=== PATIENT | male | born 1940 | race Caucasian/White ===

== ENCOUNTER 2020-09-20 11:58 | Inpatient (IN) ==
[2020-09-20] MEDS ORDERED: ALBUT/IPRATROP 3MG/0.5MG NEB 3 ML VIAL INH STA (12:14)
[2020-09-20] MEDS ORDERED: dexAMETHasone**PF** 10 MG/ML VIAL IV ONE (12:14)
--- NOTE | 2020-09-20 12:22 | Emergency Department Note ---
Impression & Plan Hypoxia, SOB (shortness of breath), Pneumonia, COVID-19 ED Provider Note NAME: ANTONIO CHEN AGE: 80 SEX: M : 1940 ARRIVES VIA: Ambulance INFORMANT: [Patient][ems] ED PROVIDER(S): [Duke Coffey MD] CHIEF COMPLAINT: Short of breath HISTORY OF PRESENT ILLNESS: The patient is an 80-year-old male who presents from [facility]. He was diagnosed with COVID-19 just over a week ago. He initially he had a lot of cough although the cough has gone away. He does complain of shortness of breath. He has been on oxygen since the diagnosis and today, his O2 saturation was only 80% on 4 L. He was sent for evaluation. The patient denies any fever. He has not had vomiting or diarrhea. There is no chest pain. He has normal taste and smell. He denies any baseline issues with his lungs. REVIEW OF SYSTEMS: See HPI for pertinent positives and negatives. A total of ten systems were reviewed and were otherwise negative. PMHx/PSHx: See Below SOCIAL HISTORY: See Below. PHYSICAL EXAM: GENERAL: Patient is in no acute distress. HEENT: No acute trauma, normocephalic atraumatic, mucous membranes moist, no nasal congestion, no scleral icterus. NECK: No stridor, no adenopathy, no meningismus, trachea is midline. LUNGS: Crackles with rhonchi at both bases. No wheezing. No obvious respiratory distress. An increased respiratory rate is noted. HEART: Without murmurs gallops or rubs, regular rate and rhythm. ABDOMEN: Soft, nontender, bowel sounds positive, no hernias, no peritonitis. EXTREMITIES: No cyanosis or edema, full range of motion of all the joints without pain or difficulty, no signs for acute trauma. NEUROLOGIC: Oriented x 3, no acute motor or sensory deficits, no focal weakness. SKIN: No rash, no jaundice, no diaphoresis. DIFFERENTIAL DIAGNOSIS: Reactive airway disease, pneumonia, pneumothorax, COPD, COVID-19, CHF, infection, cardiac ischemia, pulmonary embolism, bronchitis, musculoskeletal, gastrointestinal, as well as other pathologies. EMERGENCY DEPARTMENT COURSE/PROCEDURES: ECG: Indication was shortness of breath. The ECG shows a ventricular pacemaker with a rate of 73. No concerning ST elevation, no PVCs. The QTc is 528. Continuous Cardiac Monitoring: An order was placed for continuous cardiac monitoring. The monitor shows a rate of 87 with a ventricular pacemaker. Critical Care Note: I have personally spent 49 minutes of critical care time in the direct management of this patient. This includes bedside care, interpretation of diagnostic studies, and testing, discussion with consultants, patient, and family members, and other required patient management activities. This 49 minutes is in excess of all separately billable procedures. MEDICAL DECISION MAKING: There is no leukocytosis. The patient does have a mild anemia but this appears baseline looking back at previous testing. Platelet count slightly elevated. No coagulopathy. VBG does not show acidosis. The CO2 was low likely consistent with his increased respiratory rate. Renal panel testing shows a somewhat low sodium at 132. No kidney failure. Lactic acid level was elevated consistent with infection/dehydration. No concerning liver enzyme elevation. ECG showed a paced rhythm. No acute ischemic change by EKG. Cardiac enzyme testing x1 is not consistent with acute cardiac injury. Covid testing did return positive. Chest film showed some parenchymal congestion plus potential infiltrates. No pneumothorax. Chest CT shows some chronic lung disease as well as a left lung pneumonia. On exam, the patient was tachypneic. He was hypoxic without O2 supplementation. He did have crackles on lung exam consistent with pneumonia. Patient received IV Decadron because of his hypoxia and Covid diagnosis. He was given a DuoNeb. He was maintained on oxygen supplementation via oxygen mask. The patient is in need of a hospital stay. He has Covid pneumonia. He is hypoxic. He has failed outpatient treatment. Hospitalization is warranted. I spoke to the patient, I spoke with adult protective caseworker. The on-call hospitalist was consulted. Past Med/Surg History Medical History Coronary arteriosclerosis Hyperlipemia Hypertension Rheumatoid arthritis Family History Denies family history of Diabetes Hypertension Social History Smoking Status: Former smoker Tobacco Type: Cigarettes Second Hand Exposure: No; Hx Alcohol Use: No Hx Substance Use: No Preferred Language: Maltese Communication Ability: Effective Business Services Analyst Required: No Beliefs That Will Affect Care: None Current Living Situation: Prison Feels Safe at Home: Yes Assistive Devices: Denture - Upper and Walker Allergies Allergies Allergy/AdvReac Type Severity Reaction Status Date / Time No Known Allergies Allergy Unverified 09/20/20 14:47 Home Meds Home Medications Medication Instructions Recorded Confirmed albuterol sulfate 90 mcg/actuation 2 puff INHALATION Q4H PRN 09/20/20 09/20/20 aerosol inhaler ascorbic acid (vitamin C) 500 mg 500 mg PO DAILY 09/20/20 09/20/20 tablet aspirin 81 mg tablet,delayed 81 mg PO DAILY 09/20/20 09/20/20 release (Aspirin Low Dose) atorvastatin 40 mg tablet (Lipitor) 40 mg PO PM 09/20/20 09/20/20 benzonatate 200 mg capsule 200 mg PO TID 09/20/20 09/20/20 carvedilol 12.5 mg tablet (Coreg) 12.5 mg PO BID 09/20/20 09/20/20 cholecalciferol (vitamin D3) 125 125 mcg PO DAILY 09/20/20 09/20/20 mcg (5,000 unit) tablet (Vitamin D3) dexamethasone 6 mg tablet 6 mg PO DAILY 09/20/20 09/20/20 (Decadron) docusate sodium 50 mg capsule 50 mg PO QAM 09/20/20 09/20/20 ergocalciferol (vitamin D2) 1,250 1,250 mcg PO [id number] 09/20/20 09/20/20 mcg (50,000 unit) capsule (Vitamin D2) esomeprazole magnesium 20 mg 20 mg PO DAILY 09/20/20 09/20/20 capsule,delayed release sennosides 8.6 mg tablet (senna) 8.6 mg PO DAILY PRN 09/20/20 09/20/20 tofacitinib 11 mg tablet,extended 11 mg PO DAILY 09/20/20 09/20/20 release 24 hr zinc acetate 50 mg (zinc) capsule 50 mg PO BID 09/20/20 09/20/20 Results & Data (ED) Vital Signs Vital Signs - 24 hr 09/20/20 12:03 09/20/20 12:12 09/20/20 12:19 Temperature 37.1 C Temperature Source Oral Pulse Rate 72 76 Pulse Rate [Apical] Pulse Rate from SpO2 Sensor 72 Pulse Rhythm Regular Pulse Rhythm [Apical] Pulse Strength Normal Pulse Strength [Apical] Respiratory Rate 23 24 Respiratory Effort / Characteristics Blood Pressure 109/70 109/70 Blood Pressure [Left Arm] Blood Pressure Mean 83 83 Blood Pressure Mean [Left Arm] Blood Pressure Position Sitting Blood Pressure Position [Left Arm] Pulse Oximetry 90 90 90 Oxygen Delivery Method Oxymask Nasal Cannula Nasal Cannula Oxygen Flow Rate 7 7 7 Sepsis Recent Fever Within 48 Hours No Sepsis New/Unexplained Change in Mental Status No Sepsis Action Taken by Nursing No Action Required Oxygen Flow Rate - Titration 5 Pulse Oximetry Post Tiitration 91 09/20/20 12:21 09/20/20 12:22 09/20/20 12:33 Temperature Temperature Source Pulse Rate 73 Pulse Rate [Apical] 87 Pulse Rate from SpO2 Sensor Pulse Rhythm Regular Pulse Rhythm [Apical] Pulse Strength Pulse Strength [Apical] Respiratory Rate 24 24 28 H Respiratory Effort / Characteristics Spontaneous Spontaneous Blood Pressure Blood Pressure [Left Arm] Blood Pressure Mean Blood Pressure Mean [Left Arm] Blood Pressure Position Blood Pressure Position [Left Arm] Pulse Oximetry 92 91 92 Oxygen Delivery Method Oxymask Oxymask Oxymask Oxygen Flow Rate 5 5 5 Sepsis Recent Fever Within 48 Hours Sepsis New/Unexplained Change in Mental Status Sepsis Action Taken by Nursing Oxygen Flow Rate - Titration Pulse Oximetry Post Tiitration 09/20/20 12:36 09/20/20 15:05 Temperature Temperature Source Pulse Rate Pulse Rate [Apical] 67 Pulse Rate from SpO2 Sensor Pulse Rhythm Pulse Rhythm [Apical] Regular Pulse Strength Pulse Strength [Apical] Normal Respiratory Rate 21 Respiratory Effort / Characteristics Blood Pressure Blood Pressure [Left Arm] 109/70 Blood Pressure Mean Blood Pressure Mean [Left Arm] 83 Blood Pressure Position Blood Pressure Position [Left Arm] Sitting Pulse Oximetry 91 Oxygen Delivery Method Nasal Cannula Oxymask Oxygen Flow Rate 7 7 Sepsis Recent Fever Within 48 Hours Sepsis New/Unexplained Change in Mental Status Sepsis Action Taken by Nursing Oxygen Flow Rate - Titration Pulse Oximetry Post Tiitration Home Medications Current Medication List: was personally reviewed by me Laboratory Data Attestation: I reviewed the patient's lab results. Result diagrams: 09/20/20 13:12 09/20/20 13:12 Lab Results 09/20/20 09/20/20 09/20/20 Range/Units 13:12 13:12 13:12 WBC 10.16 (4.8-10.8) K/uL RBC 3.79 L (4.7-6.1) M/uL Hgb 11.3 L (14.0-18.0) g/dL Hct 33.5 L (42-52) % MCV 88.4 (80-100) fL MCH 29.8 (25-34) pg MCHC 33.7 (32-36) g/dL RDW Std Deviation 46.5 H (36.4-46.3) fL RDW Coeff of Thomas 14.5 (11.5-14.5) % Plt Count 409 H (130-400) K/uL MPV 8.4 (7.4-10.4) fL Immature Gran % (Auto) 0.9 % Neut % (Auto) 86.2 % Lymph % (Auto) 7.6 % [place] % (Auto) 5.1 % Eos % (Auto) 0.0 % Baso % (Auto) 0.2 % Neut # (Auto) 8.76 H (1.4-6.5) K/uL Lymph # (Auto) 0.77 L (1.2-3.4) K/uL [place] # (Auto) 0.52 (0.11-0.59) K/uL Eos # (Auto) 0.00 (0-0.5) K/uL Baso # (Auto) 0.02 (0-0.2) K/uL Immature Gran # (Auto) 0.09 H (0.00-0.02) K/uL Echinocytes 1+ PT 10.9 (9.0-12.0) Seconds INR 1.1 (0.9-1.1) APTT 23.4 (21.0-31.0) Seconds PTT Ratio 0.9 VBG pH (7.36-7.41) VBG pCO2 (38-50) mmHg VBG pO2 mmHg VBG HCO3 mmol/L VBG O2 Saturation % VBG Base Excess mEq/L Barometric Pressure mm/Hg Sodium 132 L (136-145) mmol/L Potassium 4.3 (3.5-5.1) mmol/L Chloride 102 (98-107) mmol/L Carbon Dioxide 22 (21-32) mmol/L Anion Gap 8.0 (3-11) BUN 28 H (7-18) mg/dl Creatinine 0.94 (0.6-1.4) mg/dl Est Cr Clr Drug Dosing 76.4 ml/min Est GFR ( Amer) 87.2 ml/min Est GFR (Non-Af Amer) 75.2 ml/min BUN/Creatinine Ratio 30.1 H (10-20) Glucose 113 H (70-99) mg/dl Lactate (0.4-2.0) mmol/L Calcium 8.4 L (8.5-10.1) mg/dl Magnesium 2.3 (1.8-2.4) mg/dl Total Bilirubin 1.2 H (0.2-1) mg/dl AST 23 (15-37) U/L ALT 17 (12-78) U/L Alkaline Phosphatase 90 (45-117) U/L Troponin I < 0.015 (0-0.045) ng/ml Total Protein 7.1 (6.4-8.2) gm/dl Albumin 2.6 L (3.4-5.0) gm/dl Globulin 4.5 H (2.5-4.0) gm/dl Albumin/Globulin Ratio 0.6 L (0.9-2) COVID-19 Eval Order SARS-CoV-2 (PCR) (Negative) 09/20/20 09/20/20 09/20/20 Range/Units 13:12 13:12 13:20 WBC (4.8-10.8) K/uL RBC (4.7-6.1) M/uL Hgb (14.0-18.0) g/dL Hct (42-52) % MCV (80-100) fL MCH (25-34) pg MCHC (32-36) g/dL RDW Std Deviation (36.4-46.3) fL RDW Coeff of Thomas (11.5-14.5) % Plt Count (130-400) K/uL MPV (7.4-10.4) fL Immature Gran % (Auto) % Neut % (Auto) % Lymph % (Auto) % [place] % (Auto) % Eos % (Auto) % Baso % (Auto) % Neut # (Auto) (1.4-6.5) K/uL Lymph # (Auto) (1.2-3.4) K/uL [place] # (Auto) (0.11-0.59) K/uL Eos # (Auto) (0-0.5) K/uL Baso # (Auto) (0-0.2) K/uL Immature Gran # (Auto) (0.00-0.02) K/uL Echinocytes PT (9.0-12.0) Seconds INR (0.9-1.1) APTT (21.0-31.0) Seconds PTT Ratio VBG pH 7.49 H (7.36-7.41) VBG pCO2 28 L (38-50) mmHg VBG pO2 38 mmHg VBG HCO3 21 mmol/L VBG O2 Saturation 72.8 % VBG Base Excess -1.5 mEq/L Barometric Pressure 732.2 mm/Hg Sodium (136-145) mmol/L Potassium (3.5-5.1) mmol/L Chloride (98-107) mmol/L Carbon Dioxide (21-32) mmol/L Anion Gap (3-11) BUN (7-18) mg/dl Creatinine (0.6-1.4) mg/dl Est Cr Clr Drug Dosing ml/min Est GFR ( Amer) ml/min Est GFR (Non-Af Amer) ml/min BUN/Creatinine Ratio (10-20) Glucose (70-99) mg/dl Lactate 2.7 H* (0.4-2.0) mmol/L Calcium (8.5-10.1) mg/dl Magnesium (1.8-2.4) mg/dl Total Bilirubin (0.2-1) mg/dl AST (15-37) U/L ALT (12-78) U/L Alkaline Phosphatase (45-117) U/L Troponin I (0-0.045) ng/ml Total Protein (6.4-8.2) gm/dl Albumin (3.4-5.0) gm/dl Globulin (2.5-4.0) gm/dl Albumin/Globulin Ratio (0.9-2) COVID-19 Eval Order Covid19 at [facility] SARS-CoV-2 (PCR) (Negative) 09/20/20 Range/Units 13:20 WBC (4.8-10.8) K/uL RBC (4.7-6.1) M/uL Hgb (14.0-18.0) g/dL Hct (42-52) % MCV (80-100) fL MCH (25-34) pg MCHC (32-36) g/dL RDW Std Deviation (36.4-46.3) fL RDW Coeff of Thomas (11.5-14.5) % Plt Count (130-400) K/uL MPV (7.4-10.4) fL Immature Gran % (Auto) % Neut % (Auto) % Lymph % (Auto) % [place] % (Auto) % Eos % (Auto) % Baso % (Auto) % Neut # (Auto) (1.4-6.5) K/uL Lymph # (Auto) (1.2-3.4) K/uL [place] # (Auto) (0.11-0.59) K/uL Eos # (Auto) (0-0.5) K/uL Baso # (Auto) (0-0.2) K/uL Immature Gran # (Auto) (0.00-0.02) K/uL Echinocytes PT (9.0-12.0) Seconds INR (0.9-1.1) APTT (21.0-31.0) Seconds PTT Ratio VBG pH (7.36-7.41) VBG pCO2 (38-50) mmHg VBG pO2 mmHg VBG HCO3 mmol/L VBG O2 Saturation % VBG Base Excess mEq/L Barometric Pressure mm/Hg Sodium (136-145) mmol/L Potassium (3.5-5.1) mmol/L Chloride (98-107) mmol/L Carbon Dioxide (21-32) mmol/L Anion Gap (3-11) BUN (7-18) mg/dl Creatinine (0.6-1.4) mg/dl Est Cr Clr Drug Dosing ml/min Est GFR ( Amer) ml/min Est GFR (Non-Af Amer) ml/min BUN/Creatinine Ratio (10-20) Glucose (70-99) mg/dl Lactate (0.4-2.0) mmol/L Calcium (8.5-10.1) mg/dl Magnesium (1.8-2.4) mg/dl Total Bilirubin (0.2-1) mg/dl AST (15-37) U/L ALT (12-78) U/L Alkaline Phosphatase (45-117) U/L Troponin I (0-0.045) ng/ml Total Protein (6.4-8.2) gm/dl Albumin (3.4-5.0) gm/dl Globulin (2.5-4.0) gm/dl Albumin/Globulin Ratio (0.9-2) COVID-19 Eval Order SARS-CoV-2 (PCR) POSITIVE A* (Negative) Administered Medications Discontinued Medications Albuterol (Albut/Ipratrop 3mg/0.5mg Neb 3 Ml Vial) 3 ml INH NOW STA Stop: 09/20/20 12:15 Last Admin: 09/20/20 12:33 Dose: 3 ml Documented by: [id number] Dexamethasone Sodium Phosphate (DexamethasonePf 10 Mg/Ml Vial) 6 mg IV NOW ONE Stop: 09/20/20 12:15 Last Admin: 09/20/20 13:33 Dose: 6 mg Documented by: [id number] Ioversol (Optiray 320 125ml) 119 ml IV ONCE ONE Stop: 09/20/20 14:51 Last Admin: 09/20/20 14:51 Dose: 119 ml Documented by: [id number] Imaging Data Radiologist's Impression: Chest X-Ray 09/20/20 12:14 XR chest 1V portable HISTORY: 80 years-old Male SOB acute shortness of breath COMPARISON: None TECHNIQUE: Portable AP view the chest FINDINGS: Cardiac silhouette is enlarged. Left subclavian pacer/AICD. Moderate diffuse reticular interstitial opacities, left greater than right. No pneumothorax, pleural effusion or lobar airspace consolidation. Degenerative changes of the shoulders and spine. IMPRESSION: Cardiomegaly with diffuse reticular interstitial opacities suggestive of fibrosis versus interstitial pneumonitis. Correlate with prior imaging. ACT 112: Negative or not required by law. The above report was generated using voice recognition software. It may contain grammatical, syntax or spelling errors. Electronically signed by: Anthony Kaufman M.D. 09/20/2020 1:01 PM Chest CTA 09/20/20 13:49 CT ANGIOGRAPHY OF THE CHEST, PULMONARY EMBOLUS PROTOCOL CLINICAL HISTORY: Shortness of breath. COMPARISON STUDY: Chest radiograph performed earlier today. TECHNIQUE: Following IV administration of 119 mL of Optiray, helical axial images of the chest were obtained utilizing the pulmonary embolus protocol. Maximal intensity projections and sagittal and coronal reformats were viewed on an independent 3D workstation. IV contrast was administered without complication. Automated exposure control was utilized for the study. A dose lowering technique was utilized adhering to the principles of ALARA. CT DOSE: 699.57 mGycm FINDINGS: No pulmonary emboli are identified. There is moderate cardiomegaly. A left subclavian biventricular pacer/AICD is in place. There is no pericardial effusion. Note is made of an old left ventricular apical infarct with thinning. There is mild dilatation of the left ventricular apex with outpouching. There is mild dilatation of the central pulmonary arteries. Moderate coronary artery calcification is present. There are several mildly enlarged mediastinal lymph nodes. Index subcarinal lymph node measures 1.9 x 1.2 cm. There is no thoracic aortic dissection. There is a small hiatal hernia. There is mild wall thickening the distal esophagus with possible minimal adjacent infiltration. No pneumothorax or pleural effusion is noted. There is emphysema. In addition, there are extensive groundglass opacities within the lungs, greater on the left. These have a "crazy paving" appearance. There is mild left lower lobe airspace opacity. There is mild bronchiectasis, greatest within the left lower lobe with suspected early honeycombing. Several suspected hepatic cysts measure up to 1.8 cm. There are probable gallstones within visualized portions of the gallbladder. There is bilateral gynecomastia. IMPRESSION: 1. No pulmonary emboli identified. 2. Extensive groundglass opacities throughout the lungs with mild bronchiectasis and suspected honeycombing, greatest within the left lower lobe. These ground glass opacities are age-indeterminate but probably chronic and could reflect fibrotic type of nonspecific interstitial pneumonia (NSIP). Left lower lobe airspace opacity could reflect a superimposed infectious process. 3. 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 4. Dilatation of the central pulmonary arteries suggestive of pulmonary arterial hypertension. 5. Small hiatal hernia. Mild wall thickening of the distal esophagus may reflect esophagitis. 6. A few mildly enlarged mediastinal lymph nodes which are nonspecific. ACT 112: Negative or not required by law. Electronically signed by: Angelo Fowler M.D. 09/20/2020 3:27 PM Discharge Plan Visit Data Chief Complaint: Shortness of Breath/Dyspnea Stated Complaint: sob, covid positive ED Provider: Duke Coffey Discharge Problem: Hypoxia, SOB (shortness of breath), Pneumonia, COVID-19 Patient Disposition: Admitted As Inpatient Condition: Serious Discharge Instructions Interventions: ED Discharge Assessment Last Done: 09/20/20 16:10
--- NOTE | 2020-09-20 13:02 | XRay Report ---
XR chest 1V portable HISTORY: 80 years-old Male SOB acute shortness of breath COMPARISON: None TECHNIQUE: Portable AP view the chest FINDINGS: Cardiac silhouette is enlarged. Left subclavian pacer/AICD. Moderate diffuse reticular interstitial o pacities, left greater than right. No pneumothorax, pleural effusion or lobar airspace consolidation. Degenerative changes of the shoulders and spine. IMPRESSION: Cardiomegaly with diffuse reticular interstitial opacities suggestive of fibrosis versus interstitial pneumonitis. Correlate with prior imaging. ACT 112: Negative or not required by law. The above report was generated using voice recognition software. It may contain grammatical, syntax o r spelling errors. Electronically signed by: Anthony Kaufman M.D. 09/20/2020 1:01 PM
[2020-09-20 13:25] LABS: Hematocrit (blood only) 33.5 % (42-52); Hemoglobin 11.3 g/dL (14.0-18.0); Mean Corpuscular Hemoglobin 29.8 pg (25-34); Mean Corpuscular Hgb Conc 33.7 g/dL (32-36); Mean Corpuscular Volume 88.4 fL (80-100); Mean Platelet Volume 8.4 fL (7.4-10.4); Platelet Count 409 K/uL (130-400); RDW Coefficient of Variation 14.5 % (11.5-14.5); RDW Standard Deviation 46.5 fL (36.4-46.3); Red Blood Count 3.79 M/uL (4.7-6.1); White Blood Count 10.16 K/uL (4.8-10.8)
[2020-09-20 13:35] LABS: INR 1.1 (0.9-1.1); Partial Thromboplastin Ratio 0.9; Partial Thromboplastin Time 23.4 Seconds (21.0-31.0); Prothrombin Time 10.9 Seconds (9.0-12.0)
[2020-09-20 13:40] LABS: Base Excess VBG -1.5 mEq/L; Oxygen Saturation VBG 72.8 %; pH VBG 7.49 (7.36-7.41)
[2020-09-20 13:46] LABS: Alanine Aminotransferase 17 U/L (12-78); Albumin Level 2.6 gm/dl (3.4-5.0); Aspartate Aminotransferase 23 U/L (15-37); BUN Creatinine Ratio 30.1 (10-20); Blood Urea Nitrogen 28 mg/dl (7-18); Calcium 8.4 mg/dl (8.5-10.1); Carbon Dioxide 22 mmol/L (21-32); Chloride 102 mmol/L (98-107); Creatinine Clr Calc Pharmacy 76.4 ml/min; Est GFR (African American) 87.2 ml/min; Est GFR (Non-African American) 75.2 ml/min; Glucose 113 mg/dl (70-99); Magnesium 2.3 mg/dl (1.8-2.4); Potassium 4.3 mmol/L (3.5-5.1); Sodium 132 mmol/L (136-145)
[2020-09-20 13:50] LABS: Albumin Globulin Ratio 0.6 (0.9-2); Alkaline Phosphatase 90 U/L (45-117); Bilirubin,Total 1.2 mg/dl (0.2-1); Globulin 4.5 gm/dl (2.5-4.0); Total Protein 7.1 gm/dl (6.4-8.2); Troponin I < 0.015 ng/ml (0-0.045)
[2020-09-20 13:57] LABS: Basophils # (auto) 0.02 K/uL (0-0.2); Basophils % (auto) 0.2 %; Echinocytes 1+; Immature Granulocytes # (auto) 0.09 K/uL (0.00-0.02); Immature Granulocytes % (auto) 0.9 %; Lymphocytes # (auto) 0.77 K/uL (1.2-3.4); Lymphocytes % (auto) 7.6 %; Monocytes # (auto) 0.52 K/uL (0.11-0.59); Monocytes % (auto) 5.1 %; Neutrophils # (auto) 8.76 K/uL (1.4-6.5); Neutrophils % (auto) 86.2 %
[2020-09-20] MEDS ORDERED: OPTIRAY 320 125ml IV ONE (14:50)
--- NOTE | 2020-09-20 15:29 | CT Scan Report ---
CT ANGIOGRAPHY OF THE CHEST, PULMONARY EMBOLUS PROTOCOL CLINICAL HISTORY: Shortness of breath. COMPARISON STUDY: Chest radiograph performed earlier today. TECHNIQUE: Following IV administration of 119 mL of Optiray, helical axial images of the chest were o btained utilizing the pulmonary embolus protocol. Maximal intensity projections and sagittal and cor onal reformats were viewed on an independent 3D workstation. IV contrast was administered without co mplication. Automated exposure control was utilized for the study. A dose lowering technique was ut ilized adhering to the principles of ALARA. CT DOSE: 699.57 mGycm FINDINGS: No pulmonary emboli are identified. There is moderate cardiomegaly. A left subclavian bive ntricular pacer/AICD is in place. There is no pericardial effusion. Note is made of an old left ventr icular apical infarct with thinning. There is mild dilatation of the left ventricular apex with outpo uching. There is mild dilatation of the central pulmonary arteries. Moderate coronary artery calcific ation is present. There are several mildly enlarged mediastinal lymph nodes. Index subcarinal lymph n ode measures 1.9 x 1.2 cm. There is no thoracic aortic dissection. There is a small hiatal hernia. Th ere is mild wall thickening the distal esophagus with possible minimal adjacent infiltration. No pneu mothorax or pleural effusion is noted. There is emphysema. In addition, there are extensive groundgla ss opacities within the lungs, greater on the left. These have a "crazy paving" appearance. There is mild left lower lobe airspace opacity. There is mild bronchiectasis, greatest within the left lower l obe with suspected early honeycombing. Several suspected hepatic cysts measure up to 1.8 cm. There ar e probable gallstones within visualized portions of the gallbladder. There is bilateral gynecomastia. IMPRESSION: 1. No pulmonary emboli identified. 2. Extensive groundglass opacities throughout the lungs with mild bronchiectasis and suspected honeyc ombing, greatest within the left lower lobe. These ground glass opacities are age-indeterminate but p robably chronic and could reflect fibrotic type of nonspecific interstitial pneumonia (NSIP). Left lo wer lobe airspace opacity could reflect a superimposed infectious process. 3. 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 4. Dilatation of the central pulmonary arteries suggestive of pulmonary arterial hypertension. 5. Small hiatal hernia. Mild wall thickening of the distal esophagus may reflect esophagitis. 6. A few mildly enlarged mediastinal lymph nodes which are nonspecific. ACT 112: Negative or not required by law. Electronically signed by: Angelo Fowler M.D. 09/20/2020 3:27 PM
--- NOTE | 2020-09-20 15:31 | History & Physical Report ---
Date of Service September 20, 2020 Assessment & Plan (1) COVID-19: Plan: First symptoms on 09/11/2020. Not vaccinated due to patient choice. Had been started on dexamethasone and O2 by [facility] prior to admission. - Continue dexamethasone 6 mg PO daily x 10 days - Supplemental O2 for O2 sat >= 90%. - Given duration of illness, no indication for remdesivir - Presently tocilizumab not indicated, though could be candidate in next 72 hours (will get CRP in AM as well to aid decision) - DuoNebs standing - Cough suppresant PRN though patient presently denying cough - Procalcitonin and MRSA swab ordered. CTA chest indicates possible LLL pneumonia, so have low threshold to treat for bacterial superinfection, though patient denying fevers, chills, cough, or shortness of breath, making it less likely. - Pulmonary consulted (2) NSIP (nonspecific interstitial pneumonia): Plan: CTA chest results indicate groundglass with bronchiectasis and honey-combing, concerning for NSIP. No indication in patient's chart, and patient without any knowledge of prior lung issues. - Pulmonary consulted (3) Hypertension: Plan: BP was 110/70 in the ED. 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 - Continue home ASA, beta-cass, and statin (5) Rheumatoid arthritis: Plan: Stigmata of RA on hand exam. Well-controlled with patient denying any joint pain presently. - Continue home tofacitinib. Patient brought 3 pills with him and reports more having been delivered to [facility] recently. (6) Hyperlipemia: Plan: - Continue statin (7) DVT prophylaxis: Plan: Lovenox 40 mg SQ daily Code: Full code -> Discussed with patient. Would like all life-saving measures needed. History of Present Illness Chief Complaint: Covid-19 pneumonia Primary Care Provider: Jericho Aguero 80yo M w/ hx of rheumatoid arthritis, HTN, HLD who presents with Covid-19 pneumonia. The patient lives at [facility]. On Saturday (09/11), he had a fever for which he was given Tylenol. He had another fever on Saturday and was tested for Covid-19 which was positive. He unfortunately did not get his Covid vaccine because he felt he "didn't need it." At [facility], apparently, he was put on O2 and was doing ok on up to 4L. He was also started on dexamethasone, though I'm not sure what day from the records. He was sent to the ER when he had an O2 sat in the 80% range while on the 4L NC at [facility]. In the ED, he required up to 10L Oxymask initially, but has been weaned to 7L Oxymask by the time of my interview. On my interview, he actually reports feeling quite well. He notes the fevers from last week, but says he has had none since. He specifically denies any shortness of breath, cough, fevers/chills, nausea, vomiting, diarrhea, or other concerns. He feels well and asks if he can be sent home. Allergies Allergy/AdvReac Type Severity Reaction Status Date / Time No Known Allergies Allergy Unverified 09/20/20 14:47 Home Medications Medication Instructions Recorded Confirmed Type albuterol sulfate 90 mcg/actuation 2 puff INHALATION Q4H PRN 09/20/20 09/20/20 History aerosol inhaler ascorbic acid (vitamin C) 500 mg 500 mg PO DAILY 09/20/20 09/20/20 History tablet aspirin 81 mg tablet,delayed 81 mg PO DAILY 09/20/20 09/20/20 History release (Aspirin Low Dose) atorvastatin 40 mg tablet (Lipitor) 40 mg PO PM 09/20/20 09/20/20 History benzonatate 200 mg capsule 200 mg PO TID 09/20/20 09/20/20 History carvedilol 12.5 mg tablet (Coreg) 12.5 mg PO BID 09/20/20 09/20/20 History cholecalciferol (vitamin D3) 125 125 mcg PO DAILY 09/20/20 09/20/20 History mcg (5,000 unit) tablet (Vitamin D3) dexamethasone 6 mg tablet 6 mg PO DAILY 09/20/20 09/20/20 History (Decadron) docusate sodium 50 mg capsule 50 mg PO QAM 09/20/20 09/20/20 History ergocalciferol (vitamin D2) 1,250 1,250 mcg PO 4XWK 09/20/20 09/20/20 History mcg (50,000 unit) capsule (Vitamin D2) esomeprazole magnesium 20 mg 20 mg PO DAILY 09/20/20 09/20/20 History capsule,delayed release sennosides 8.6 mg tablet (senna) 8.6 mg PO DAILY PRN 09/20/20 09/20/20 History tofacitinib 11 mg tablet,extended 11 mg PO DAILY 09/20/20 09/20/20 History release 24 hr zinc acetate 50 mg (zinc) capsule 50 mg PO BID 09/20/20 09/20/20 History Past Med/Surg History Medical History (Updated 09/20/20 @ 15:42 by Osvaldo Jenkins MD) Coronary arteriosclerosis Hyperlipemia Hypertension Rheumatoid arthritis Family History Denies family history of Diabetes Hypertension Social History Smoking Status: Former smoker Tobacco Type: Cigarettes Feels Safe at Home: Yes Review of Systems Review of Systems: All systems reviewed & are unremarkable except as noted in HPI & below Physical Exam Constitutional: WD/WN, vitals as above Eyes: EOM intact bilaterally; no conjunctival abnormality ENMT: external ear and nose normal, oropharynx normal Neck: trachea midline, no thyromegaly normal visual inspection Respiratory: + tachypneic; no respiratory distress and no stridor Auscultation: + rhonchi Cardiovascular: RRR, no murmur, no edema Gastrointestinal (Abdomen): Inspection/Auscultation: abdomen normal to inspection; abdomen not distended Musculoskeletal: no cyanosis or clubbing, extremities motor strength 5/5 Skin: no rashes, warm and dry Neurologic: moves all extremities and awake Psychiatric: Orientation: alert, oriented to person and cooperative Results & Data Results & Data ([facility]) Vital Signs (Past 12 Hours) Vital Signs Temp Pulse Pulse Resp BP BP Pulse Ox 09/20/20 15:05 67 21 109/70 91 09/20/20 12:33 87 28 H 92 09/20/20 12:22 24 91 09/20/20 12:21 73 24 92 09/20/20 12:19 90 09/20/20 12:12 37.1 C 76 24 109/70 90 09/20/20 12:03 72 23 109/70 90 PG Care Time/CCT Total # of Minutes Spent Total Time Spent with Patient: Total time spent is greater than 50% in coordination of care (as documented) at patient's floor/unit and/or counseling patient: Coding Level of Care Code 11675 Initial Inpt Care Lvl 3 Diagnoses COVID-19 U07.1 Hypertension I10 Rheumatoid arthritis M06.9 Hyperlipemia E78.5 DVT prophylaxis Z29.9 NSIP (nonspecific interstitial pneumonia) J84.89 Coronary arteriosclerosis I25.10
[2020-09-20] MEDS ORDERED: ONDANSETRON INJ 2 MG/ML 2 ML VIAL IV PRN (16:40)
[2020-09-20] MEDS ORDERED: SENNA 8.6 MG TAB PO PRN (16:40)
[2020-09-20] MEDS ORDERED: ACETAMINOPHEN 325 MG TAB PO PRN (16:40)
[2020-09-20] MEDS ORDERED: BENZONATATE 100 MG CAPSULE PO PRN (16:40)
[2020-09-20] MEDS: ALBUT/IPRATROP 3MG/0.5MG NEB 3 ML VIAL NEB SCH ×2 (19:28→22:14)
--- NOTE | 2020-09-20 19:30 | Electrocardiogram Report ---
Test Reason : Blood Pressure : / mmHG Vent. Rate : 073 BPM Atrial Rate : 073 BPM P-R Int : 156 ms QRS Dur : 150 ms QT Int : 480 ms P-R-T Axes : 019 038 118 degrees QTc Int : 528 ms Atrial-sensed ventricular-paced rhythm Abnormal ECG No previous ECGs available Confirmed by Gilbert Hernandez ([id number]) on 09/20/2020 7:30:22 PM Referred By: Andriy Palomares Confirmed By:Gilbert Hernandez
[2020-09-20] MEDS: ZINC SULFATE 220 MG CAPSULE PO SCH (20:32)
[2020-09-20] MEDS: ATORVASTATIN 40 MG TAB PO SCH (20:34)
[2020-09-20] MEDS: carvediloL 12.5 MG TAB PO SCH (20:34)
[2020-09-20] MEDS ORDERED: cefTRIAXone SODIUM 2,000 MG in DEXTROSE 5% 50 ML IV SCH (21:15)
[2020-09-20] MEDS: DOXYCYCLINE HYCLATE 100 MG in DEXTROSE 5% 100 ML IV SCH (23:29)
[2020-09-21] MEDS: ALBUT/IPRATROP 3MG/0.5MG NEB 3 ML VIAL NEB SCH ×6 (03:15→22:54)
[2020-09-21 06:34] LABS: Hematocrit (blood only) 32.7 % (42-52); Hemoglobin 11.3 g/dL (14.0-18.0); Mean Corpuscular Hgb Conc 34.6 g/dL (32-36); Mean Corpuscular Volume 89.8 fL (80-100); Mean Platelet Volume 8.3 fL (7.4-10.4); Platelet Count 415 K/uL (130-400); RDW Coefficient of Variation 14.4 % (11.5-14.5); RDW Standard Deviation 47.3 fL (36.4-46.3); Red Blood Count 3.64 M/uL (4.7-6.1); White Blood Count 10.35 K/uL (4.8-10.8)
[2020-09-21 07:16] LABS: BUN Creatinine Ratio 34.8 (10-20); Calcium 8.5 mg/dl (8.5-10.1); Creatinine Clr Calc Pharmacy 81.6 ml/min; Est GFR (African American) 92.7 ml/min; Magnesium 2.6 mg/dl (1.8-2.4)
[2020-09-21 07:19] LABS: C Reactive Protein 10.7 mg/dl (0-0.29)
[2020-09-21] MEDS: PANTOprazole 40 MG TAB PO SCH (07:55)
[2020-09-21] MEDS: CHOLECALCIFEROL 1,000 UNITS 25 MCG TAB PO SCH (07:55)
[2020-09-21] MEDS: DOCUSATE SODIUM 100 MG CAP PO SCH (07:55)
[2020-09-21] MEDS: ASCORBIC ACID 500 MG TAB PO SCH (07:55)
[2020-09-21] MEDS: ERGOCALCIFEROL 50,000 UNITS 1250 MCG CAP PO SCH (07:55)
[2020-09-21] MEDS: ZINC SULFATE 220 MG CAPSULE PO SCH ×2 (07:56→21:32)
[2020-09-21] MEDS: ASPIRIN 81 MG ECTAB PO SCH (07:56)
[2020-09-21] MEDS: carvediloL 12.5 MG TAB PO SCH ×2 (07:58→21:33)
[2020-09-21] MEDS: DOXYCYCLINE HYCLATE 100 MG in DEXTROSE 5% 100 ML IV SCH (08:03)
--- NOTE | 2020-09-21 08:08 | Pulmonary Consultation ---
Date of Consultation September 21, 2020 Assessment & Plan (1) Acute and chronic respiratory failure with hypoxia: (2) Pneumonia: Laterality: left Lung location: lower lobe of lung Pneumonia type: due to unspecified organism Qualified Code(s): J18.9 - Pneumonia, unspecified organism (3) COVID-19: (4) Rheumatoid arthritis: (5) Pulmonary fibrosis: (6) ILD (interstitial lung disease): CT chest 09/20/2020 personally reviewed: Patient has interstitial thickening increased reticulation as well as honeycombing appreciated bilateral upper lobes as well as minimal in the left lower lobe Traction bronchiectasis also appreciated in the left lower lobe as well as the right lower lobe Groundglass opacities are appreciated peripherally No mediastinal lymphadenopathy --Acute hypoxic respiratory failure Multifactorial Underlying multi lobar COVID-19 pneumonia definitely playing a role Patient has most likely underlying lung disease which she was not diagnosed with --> looking at the CAT scan I think patient has ILD which could be NSIP pattern CRP 10.7, procalcitonin 0.12 Patient is out of the timeline for remdesivir Continue with dexamethasone Awake proning O2 supplementation to keep oxygen saturation 88-92% Continue with high flow and transition to CPAP/BiPAP if need be --ILD Is very difficult to say whether it is NSIP given the patient's BNP was 2200 and patient also has COVID-19 pneumonia which both of them can give groundglass opacities Patient also has rheumatoid arthritis which has been associated with ILD He is already on tofacitinib Technically patient would need a biopsy but I do not think given patient age and current condition that is a possibility He is already on steroids and will continue with the same dose --Rheumatoid arthritis On tofacitinib --Overall prognosis is guarded Plan: Transfer the patient to the ICU. Would recommend high flow 60 L and gradually titrate down to keep O2 saturation between 88-92% Give a dose of Lasix 40 mg Keep the patient negative balance Continue with dexamethasone, I will change it to IV 10 mg on a daily basis Patient CRP is elevated. He does qualify for Tocilizumab but but given the patient is on tofacitinib it does make it difficult choice given the patient will be on 2 immunosuppressive medication at the same time Thing to keep in mind if the patient has severe underlying lung disease and if there is no improvement in the next 24 hours he might not make it I would repeat a CRP tomorrow if there is no improvement in his status, I would recommend to give the patient Tocilizumab Overall prognosis of the patient is guarded given underlying significant lung disease Case was discussed with Dr. Tamez Please note the above document was generated using voice recognition software. It may contain grammatical, syntax or spelling errors.Any formal questions or concerns about the content, text or information contained within the body of this dictation should be directly addressed to the provider for clarification. History of Present Illness Attending Physician: Osvaldo Jenkins MD History of Present Illness 80-year-old male past medical history of rheumatoid arthritis on tofacitinib,Hypertension, dyslipidemia but to the hospital with complaints of worsening shortness of breath. Patient was spiking fever at home. He was found to be COVID-19 positive He was started on dexamethasone at his [facility]. In the ED initially required 10 L OxiMax which was weaned down to 7 L Pulmonary were consulted because of abnormal CAT scan finding At the time of examination patient was on 100% high flow, 40 L saturation still in the low 80s Patient was not in any respiratory distress. He did complain of cough and stated there is able to bring it up. Denies any chest pain, no headache, no nausea, no vomiting. Has been urinating well. Patient any issues with lungs before. There is no history of lung disease in the family Allergies Allergy/AdvReac Type Severity Reaction Status Date / Time No Known Allergies Allergy Unverified 09/20/20 14:47 Home Medications Medication Instructions Recorded Confirmed Type albuterol sulfate 90 mcg/actuation 2 puff INHALATION Q4H PRN 09/20/20 09/20/20 History aerosol inhaler ascorbic acid (vitamin C) 500 mg 500 mg PO DAILY 09/20/20 09/20/20 History tablet aspirin 81 mg tablet,delayed 81 mg PO DAILY 09/20/20 09/20/20 History release (Aspirin Low Dose) atorvastatin 40 mg tablet (Lipitor) 40 mg PO PM 09/20/20 09/20/20 History benzonatate 200 mg capsule 200 mg PO TID 09/20/20 09/20/20 History carvedilol 12.5 mg tablet (Coreg) 12.5 mg PO BID 09/20/20 09/20/20 History cholecalciferol (vitamin D3) 125 125 mcg PO DAILY 09/20/20 09/20/20 History mcg (5,000 unit) tablet (Vitamin D3) dexamethasone 6 mg tablet 6 mg PO DAILY 09/20/20 09/20/20 History (Decadron) docusate sodium 50 mg capsule 50 mg PO QAM 09/20/20 09/20/20 History ergocalciferol (vitamin D2) 1,250 1,250 mcg PO 4XWK 09/20/20 09/20/20 History mcg (50,000 unit) capsule (Vitamin D2) esomeprazole magnesium 20 mg 20 mg PO DAILY 09/20/20 09/20/20 History capsule,delayed release sennosides 8.6 mg tablet (senna) 8.6 mg PO DAILY PRN 09/20/20 09/20/20 History tofacitinib 11 mg tablet,extended 11 mg PO DAILY 09/20/20 09/20/20 History release 24 hr zinc acetate 50 mg (zinc) capsule 50 mg PO BID 09/20/20 09/20/20 History Patient History Medical History Coronary arteriosclerosis Hyperlipemia Hypertension Rheumatoid arthritis Family History Denies family history of Diabetes Hypertension Social History Smoking Status: Former smoker Tobacco Type: Cigarettes Second Hand Exposure: No; Hx Alcohol Use: No Hx Substance Use: No Preferred Language: Colombian Communication Ability: Effective Cisco Network Architect Required: No Beliefs That Will Affect Care: None Current Living Situation: Group Home Feels Safe at Home: Yes Assistive Devices: Oxygen - Continuous Review of Systems Review of Systems: Negative except as above Physical Exam Physical Exam: Constitutional: No acute distress HEENT: EOMI, PERRLA Respiratory system: Decreased air entry bilaterally, no wheezing, no rhonchi, positive Velcro-like crackles bilateral lower lobes CVS: S1-S2 positive Abdomen: Soft, nontender, nondistended, positive bowel sounds x4 Extremities: +2 pulses bilaterally radialis/ dorsalis pedis, no cyanosis, no edema Neuro: Awake alert oriented x3 Psych: Normal mood and affect G/U: No Ascencio Skin: no rashes, warm and dry Lymphatic: no cervical or axillary lymphadenopathy Results & Data Results & Data ([facility]) Vital Signs (Past 12 Hours) Vital Signs Temp Pulse Pulse Resp BP Pulse Ox 09/21/20 07:50 36.4 C L 56 L 18 130/77 89 L 09/21/20 07:40 57 L 18 89 L 09/21/20 07:39 57 L 18 89 L 09/21/20 07:08 55 L 09/21/20 04:00 36.9 C 60 24 126/66 88 L 09/21/20 03:47 70 18 91 09/21/20 03:16 54 L 20 90 09/20/20 22:14 63 20 96 09/20/20 21:27 91 09/20/20 20:26 36.3 C L 59 L 20 118/71 80 L 09/21/20 06:13 09/21/20 06:13 PG Care Time/CCT Total # of Minutes Spent Total Time Spent with Patient: Total time spent is greater than 50% in coordination of care (as documented) at patient's floor/unit and/or counseling patient: Coding Level of Care Code 22344 Initial Inpt Care Lvl 3 Diagnoses Acute and chronic respiratory failure with hypoxia J96.21 Pneumonia J18.9 Laterality: left Lung location: lower lobe of lung Pneumonia type: due to unspecified organism COVID-19 U07.1 Rheumatoid arthritis M06.9 Pulmonary fibrosis J84.10 ILD (interstitial lung disease) J84.9
[2020-09-21] MEDS ORDERED: ENOXAPARIN INJ 40 MG/0.4 ML SYR SQ SCH (09:00)
[2020-09-21] MEDS ORDERED: dexAMETHasone 4 MG TAB PO SCH (09:00)
[2020-09-21] MEDS ORDERED: FUROSEMIDE 40 MG/4 ML VIAL IV ONE (09:50)
[2020-09-21] MEDS ORDERED: dexAMETHasone 10 MG in SYRINGE 0 ML IV STA (12:26)
[2020-09-21] MEDS ORDERED: FUROSEMIDE 40 MG in SYRINGE 0 ML IV ONE (15:40)
[2020-09-21] MEDS ORDERED: CONSULT PHARMACY PRN (18:40)
--- NOTE | 2020-09-21 18:42 | Critical Care Consultation ---
Date of Consultation September 21, 2020 Assessment & Plan (1) Respiratory failure with hypoxia: Reason Critically Ill: Acute hypoxic respiratory failure secondary to COVID-19 pneumonia PLAN: Resp: Acute hypoxic respiratory failure secondary to COVID-19 pneumonia Acute respiratory distress syndrome secondary to COVID-19 -Continue steroids -Consents to Tocilizumab Rheumatoid arthritis -On tofacitinib -Consideration given to immunosuppression however this would be relative compared to that of organ transplantation and active chemotherapy feel the benefits outweigh the risks CV: Hypertension -Continue Coreg 12.5 twice daily Hyperlipidemia -Lipitor 40 mg Fluids/Renal: Mild hyponatremia ID: COVID-19 pneumonia -Steroids and Tocilizumab -On Rocephin and doxycycline for superimposed bacterial infection -Procalcitonin negative will discontinue additional antibiotics GI/Nutrition: Heart healthy diet Heme: Mild anemia at baseline DVT prophylaxis: Lovenox 40 mg twice daily Endocrine: ICU hyperglycemia protocol Vascular access: Peripheral IVs Code Status: Full code Disposition: ICU (2) COVID-19: (3) Coronary arteriosclerosis: (4) Hyperlipemia: (5) Hypertension: (6) Rheumatoid arthritis: Supervising Physician Co-Signing Physician Notes I have personally spent 45 minutes of critical care time in the direct management of this patient. This is a life/limb threatening event. This includes time spent evaluating patient, direct bedside care, chart review, placing orders, interpretation of diagnostic studies, discussion with consultants, patient, and/or family members regarding treatment decisions, as well as other required patient management activities. This time is exclusive of all separately billable procedures, and teaching time and separate from and in addition to any other critical care service time. History of Present Illness Reason for Consultation: Acute hypoxic respiratory failure secondary to COVID-19 pneumonia Requesting Physician: Gera Mac Attending Physician: Gera Mac History of Present Illness Patient is an 80-year-old male with past medical history of coronary artery disease, hyperlipidemia, rheumatoid arthritis, hypertension and a nonspecific interstitial pneumonia who presents from the [facility] after being diagnosed with COVID-19 approximately a week and a half ago. He has had increasing oxygen requirements over the last 48 hours which prompted his evaluation in the emergency department. In the hospital he has progressed to requiring high flow nasal cannula on 80% FiO2 at 60 L. He was transferred to the ICU for further evaluation and management. He denies any past medical history of diverticulitis diverticulosis or perforated bowel. We discussed the risks and benefits of Tocilizumab, he is clearly worsening clinically and he accepts the risks associated with drug and we will proceed with Tocilizumab. In discussing respiratory insufficiency and prolonged hypoxic respiratory failure should he require intubation he would proceed with intubation he understands as alternative would be made comfortable and allowed to pass away. We also discussed risks and benefits of tracheostomy should he go beyond 2 weeks mechanical ventilation and he felt like he would likely consents to a tracheostomy for continued medical management of acute respiratory failure related to COVID-19 pneumonia. Allergies Allergy/AdvReac Type Severity Reaction Status Date / Time No Known Allergies Allergy Unverified 09/20/20 14:47 Home Medications Medication Instructions Recorded Confirmed Type albuterol sulfate 90 mcg/actuation 2 puff INHALATION Q4H PRN 09/20/20 09/20/20 History aerosol inhaler ascorbic acid (vitamin C) 500 mg 500 mg PO DAILY 09/20/20 09/20/20 History tablet aspirin 81 mg tablet,delayed 81 mg PO DAILY 09/20/20 09/20/20 History release (Aspirin Low Dose) atorvastatin 40 mg tablet (Lipitor) 40 mg PO PM 09/20/20 09/20/20 History benzonatate 200 mg capsule 200 mg PO TID 09/20/20 09/20/20 History carvedilol 12.5 mg tablet (Coreg) 12.5 mg PO BID 09/20/20 09/20/20 History cholecalciferol (vitamin D3) 125 125 mcg PO DAILY 09/20/20 09/20/20 History mcg (5,000 unit) tablet (Vitamin D3) dexamethasone 6 mg tablet 6 mg PO DAILY 09/20/20 09/20/20 History (Decadron) docusate sodium 50 mg capsule 50 mg PO QAM 09/20/20 09/20/20 History ergocalciferol (vitamin D2) 1,250 1,250 mcg PO 4XWK 09/20/20 09/20/20 History mcg (50,000 unit) capsule (Vitamin D2) esomeprazole magnesium 20 mg 20 mg PO DAILY 09/20/20 09/20/20 History capsule,delayed release sennosides 8.6 mg tablet (senna) 8.6 mg PO DAILY PRN 09/20/20 09/20/20 History tofacitinib 11 mg tablet,extended 11 mg PO DAILY 09/20/20 09/20/20 History release 24 hr zinc acetate 50 mg (zinc) capsule 50 mg PO BID 09/20/20 09/20/20 History Patient History Medical History Coronary arteriosclerosis Hyperlipemia Hypertension Rheumatoid arthritis Family History Denies family history of Diabetes Hypertension Social History Smoking Status: Former smoker Tobacco Type: Cigarettes Second Hand Exposure: No; Hx Alcohol Use: No Hx Substance Use: No Preferred Language: Tajik Communication Ability: Effective Remote Sensing Analyst Required: No Beliefs That Will Affect Care: None Current Living Situation: Care Home Feels Safe at Home: Yes Assistive Devices: Oxygen - Continuous Review of Systems Review of Systems: Breathing looks improved on supplemental oxygen, denies chest pains as not tolerate lying on his stomach Physical Exam Physical Exam: General: Alert. nontoxic. Skin: Warm, dry, Head: Atraumatic Ears, nose, mouth and throat: airway patent Cardiovascular: Normal peripheral perfusion Respiratory: Mild tachypnea Gastrointestinal: Non distended Musculoskeletal: No deformity Results & Data Results & Data ([facility]) Vital Signs (Past 12 Hours) Vital Signs Temp Pulse Pulse Resp BP BP Pulse Ox 09/21/20 17:52 30 H 113/62 96 09/21/20 17:22 78 38 H 127/65 92 09/21/20 16:52 58 L 19 117/77 95 09/21/20 16:22 50 L 38 H 112/65 94 09/21/20 15:52 62 16 115/57 L 91 09/21/20 15:22 64 14 111/60 94 09/21/20 14:57 50 L 23 92 09/21/20 14:55 50 L 23 92 09/21/20 14:52 59 L 17 117/66 91 09/21/20 14:23 58 L 18 81/65 L 93 09/21/20 14:10 71 30 H 97 09/21/20 14:00 73 17 92 09/21/20 13:53 60 25 H 85 L 09/21/20 13:21 61 25 H 118/66 92 09/21/20 12:52 64 26 H 117/66 94 09/21/20 12:22 53 L 17 111/70 93 09/21/20 12:13 36.5 C 09/21/20 11:51 69 18 126/71 93 09/21/20 11:30 63 19 91 09/21/20 11:20 53 L 15 97 09/21/20 11:10 68 28 H 98 09/21/20 11:05 66 28 H 95 09/21/20 11:00 60 12 87 L 09/21/20 07:50 36.4 C L 56 L 18 130/77 89 L 09/21/20 07:40 57 L 18 89 L 09/21/20 07:39 57 L 18 89 L 09/21/20 07:08 55 L Laboratory Results 09/21/20 09/21/20 09/20/20 Range/Units 06:13 06:13 16:10 WBC 10.35 (4.8-10.8) K/uL RBC 3.64 L (4.7-6.1) M/uL Hgb 11.3 L (14.0-18.0) g/dL Hct 32.7 L (42-52) % MCV 89.8 (80-100) fL MCH 31.0 (25-34) pg MCHC 34.6 (32-36) g/dL RDW Std Deviation 47.3 H (36.4-46.3) fL RDW Coeff of Thomas 14.4 (11.5-14.5) % Plt Count 415 H (130-400) K/uL MPV 8.3 (7.4-10.4) fL Sodium 132 L (136-145) mmol/L Potassium 4.0 (3.5-5.1) mmol/L Chloride 102 (98-107) mmol/L Carbon Dioxide 25 (21-32) mmol/L Anion Gap 5.0 (3-11) BUN 30 H (7-18) mg/dl Creatinine 0.88 (0.6-1.4) mg/dl Est Cr Clr Drug Dosing 81.6 ml/min Est GFR ( Amer) 92.7 ml/min Est GFR (Non-Af Amer) 80.0 ml/min BUN/Creatinine Ratio 34.8 H (10-20) Glucose 119 H (70-99) mg/dl Calcium 8.5 (8.5-10.1) mg/dl Magnesium 2.6 H (1.8-2.4) mg/dl C-Reactive Protein 10.70 H (0-0.29) mg/dl NT-Pro-B Natriuret Pep (0-1800) pg/ml Nasal Screen MRSA (PCR) Negative (Negative) 09/20/20 Range/Units 13:12 WBC (4.8-10.8) K/uL RBC (4.7-6.1) M/uL Hgb (14.0-18.0) g/dL Hct (42-52) % MCV (80-100) fL MCH (25-34) pg MCHC (32-36) g/dL RDW Std Deviation (36.4-46.3) fL RDW Coeff of Thomas (11.5-14.5) % Plt Count (130-400) K/uL MPV (7.4-10.4) fL Sodium (136-145) mmol/L Potassium (3.5-5.1) mmol/L Chloride (98-107) mmol/L Carbon Dioxide (21-32) mmol/L Anion Gap (3-11) BUN (7-18) mg/dl Creatinine (0.6-1.4) mg/dl Est Cr Clr Drug Dosing ml/min Est GFR ( Amer) ml/min Est GFR (Non-Af Amer) ml/min BUN/Creatinine Ratio (10-20) Glucose (70-99) mg/dl Calcium (8.5-10.1) mg/dl Magnesium (1.8-2.4) mg/dl C-Reactive Protein (0-0.29) mg/dl NT-Pro-B Natriuret Pep 2335 H (0-1800) pg/ml Nasal Screen MRSA (PCR) (Negative) Coding Level of Care Code Critical Care 1st 30-74 mins Diagnoses Respiratory failure with hypoxia J96.01 Chronicity: acute COVID-19 U07.1 Coronary arteriosclerosis I25.10 Hyperlipemia E78.5 Hypertension I10 Rheumatoid arthritis M06.9 (1) Respiratory failure with hypoxia Chronicity: acute Qualified Code(s): J96.01 - Acute respiratory failure with hypoxia
[2020-09-21] MEDS ORDERED: [UNRECOGNIZED DRUG - OTHER] IV ONE (18:45)
[2020-09-21] MEDS ORDERED: TOCILIZUMAB IV ONE ×2 (18:45→19:00)
[2020-09-21] MEDS ORDERED: [UNRECOGNIZED DRUG - OTHER] IV ONE (19:00)
--- NOTE | 2020-09-21 19:47 | Hospitalist Progress Note ---
Date of Service September 21, 2020 Assessment & Plan (1) Acute respiratory failure with hypoxia: Plan: 2nd COVID-19 pneumonia in setting of a baseline ILD (rheumatoid lung?). Patient with rapidly declining pulmonary status overnight/this am necessitating transfer to ICU. Cont HFNC vs BiPAP. Patient requests full code status. Trial of lasix in light of worsening status. (2) Pneumonia due to COVID-19 virus: Plan: First symptoms on 09/11/2020. Not vaccinated due to patient choice. Had been taking dexamethasone at [facility] prior to admission. Rapid decline overnight. Cont dexamethasone - zinc plate cutter to increase to 10mg/day. Too late in the illness course for remdesivir. Consideration is being given towards tocilizumab (meets criteria with elevated CRP, rapid increase in FiO2 requirements, <72 hrs into his hospitalization, etc) by the ICU team. Defer to ICU whether to continue IV antibiotics for possible superimposed bacterial pneumonia. Cont HFNC or BiPAP. At high risk of needing intubation. (3) ILD (interstitial lung disease): Plan: Appears to have a baseline ILD. Rheumatoid lung? (has had RA for 40+ years). (4) Hypertension: Plan: Controlled. Continue coreg. (5) Coronary arteriosclerosis: Plan: Continue home aspirin, beta-cass, and statin. No evidence of ischemia. (6) Rheumatoid arthritis: Plan: Typically takes tofacitinib. This will be held especially since tocilizumab will be employed. (7) Hyperlipemia: Plan: Continue lipitor. (8) Hyponatremia: Plan: Mildly low but stable. Repeat bmp am. If any worsening obtain serum osm, urine osm, urine Na. (9) Esophagitis: Plan: as seen on CTA chest. increase PPI. (10) DVT prophylaxis: Plan: Increase Lovenox to 40 mg BID Plan: I updated the pt's son by phone this evening. Questions answered. Admission and Anticipated Discharge Date Admission Date: September 20, 2020 Subjective called by nursing staff early this am that patient was maxed out on HFNC (40L, 100% FiO2) with desats into the 70s with minimal activity. upon my arrival the patient had a oxymask in place over his high-flow. sats were mid 90s on such. Dr Lamb was at bedside. patient was not in distress fortunately. he stated he didn't realize how ill he was. we explained that he would need to be transferred to the ICU due to the severity of his illness. he confirmed he would want full code including intubation if needed. Review of Systems Review of Systems: Gen: weakness, anorexia. Pulm: dyspneic, cough, no sputum. GI: no abdominal pain. CV: no chest pain. Physical Exam Physical Exam: Gen: tachypneic, but no retractions or accessory muscle use. A/o x 3. Can speak in full sentences. Mouth: MMM. Neck: no obvious JVD. Heart: RRR, s1 s2, no murmur. Lungs: fine, dry, bibasilar rales - R>L. Tachypneic. Abd: soft, NT, ND, BS+, no HSM. Ext: no edema, pulses 2+ b/l. Psych: a/o x 3. Results & Data Results & Data ([facility]) Vital Signs (Past 12 Hours) Vital Signs Temp Pulse Pulse Resp BP BP Pulse Ox 09/21/20 19:22 61 25 H 92 09/21/20 17:52 30 H 113/62 96 09/21/20 17:22 78 38 H 127/65 92 09/21/20 16:52 58 L 19 117/77 95 09/21/20 16:22 50 L 38 H 112/65 94 09/21/20 15:52 62 16 115/57 L 91 09/21/20 15:22 64 14 111/60 94 09/21/20 14:57 50 L 23 92 09/21/20 14:55 50 L 23 92 09/21/20 14:52 59 L 17 117/66 91 09/21/20 14:23 58 L 18 81/65 L 93 09/21/20 14:10 71 30 H 97 09/21/20 14:00 73 17 92 09/21/20 13:53 60 25 H 85 L 09/21/20 13:21 61 25 H 118/66 92 09/21/20 12:52 64 26 H 117/66 94 09/21/20 12:22 53 L 17 111/70 93 09/21/20 12:13 36.5 C 09/21/20 11:51 69 18 126/71 93 09/21/20 11:30 63 19 91 09/21/20 11:20 53 L 15 97 07/28/21 11:10 68 28 H 98 09/21/20 11:05 66 28 H 95 09/21/20 11:00 60 12 87 L 09/21/20 07:50 36.4 C L 56 L 18 130/77 89 L Laboratory Results Laboratory Results - last 24 hr 09/20/20 09/21/20 09/21/20 13:12 06:13 06:13 WBC 10.35 RBC 3.64 L Hgb 11.3 L Hct 32.7 L MCV 89.8 MCH 31.0 MCHC 34.6 RDW Std Deviation 47.3 H RDW Coeff of Thomas 14.4 Plt Count 415 H MPV 8.3 Sodium 132 L Potassium 4.0 Chloride 102 Carbon Dioxide 25 Anion Gap 5.0 BUN 30 H Creatinine 0.88 Est Cr Clr Drug Dosing 81.6 Est GFR ( Amer) 92.7 Est GFR (Non-Af Amer) 80.0 BUN/Creatinine Ratio 34.8 H Glucose 119 H Calcium 8.5 Magnesium 2.6 H C-Reactive Protein 10.70 H NT-Pro-B Natriuret Pep 2335 H PG Care Time/CCT Total # of Minutes Spent Total Time Spent with Patient: Total time spent is greater than 50% in coordination of care (as documented) at patient's floor/unit and/or counseling patient: Coding Level of Care Code 38453 Subseq Hosp Care Lvl 3 Diagnoses Hypertension I10 Coronary arteriosclerosis I25.10 Rheumatoid arthritis M06.9 Hyperlipemia E78.5 DVT prophylaxis Z29.9 Acute respiratory failure with hypoxia J96.01 ILD (interstitial lung disease) J84.9 Pneumonia due to COVID-19 virus U07.1; J12.82 Hyponatremia E87.1 Esophagitis K20.90
[2020-09-21] MEDS: ATORVASTATIN 40 MG TAB PO SCH (21:32)
[2020-09-21] MEDS: ENOXAPARIN INJ 40 MG/0.4 ML SYR SQ SCH (21:33)
[2020-09-22] MEDS: ALBUT/IPRATROP 3MG/0.5MG NEB 3 ML VIAL NEB SCH ×6 (03:00→23:04)
[2020-09-22 05:24] LABS: Basophils # (auto) 0.01 K/uL (0-0.2); Basophils % (auto) 0.1 %; Hematocrit (blood only) 31.5 % (42-52); Hemoglobin 11.1 g/dL (14.0-18.0); Lymphocytes # (auto) 0.59 K/uL (1.2-3.4); Lymphocytes % (auto) 5.8 %; Mean Corpuscular Hemoglobin 31.9 pg (25-34); Mean Corpuscular Hgb Conc 35.2 g/dL (32-36); Mean Corpuscular Volume 90.5 fL (80-100); Mean Platelet Volume 8.4 fL (7.4-10.4); Monocytes # (auto) 0.53 K/uL (0.11-0.59); Monocytes % (auto) 5.2 %; Neutrophils # (auto) 8.88 K/uL (1.4-6.5); Neutrophils % (auto) 87.9 %; Platelet Count 413 K/uL (130-400); RDW Coefficient of Variation 14.2 % (11.5-14.5); RDW Standard Deviation 46.9 fL (36.4-46.3); Red Blood Count 3.48 M/uL (4.7-6.1); White Blood Count 10.11 K/uL (4.8-10.8)
[2020-09-22 05:48] LABS: BUN Creatinine Ratio 36.4 (10-20); Calcium 8.6 mg/dl (8.5-10.1); Creatinine Clr Calc Pharmacy 71.8 ml/min; Est GFR (African American) 80.9 ml/min; Est GFR (Non-African American) 69.8 ml/min; Magnesium 2.6 mg/dl (1.8-2.4); Potassium 4.5 mmol/L (3.5-5.1)
[2020-09-22 05:49] LABS: C Reactive Protein 11.6 mg/dl (0-0.29); Phosphorus 3.8 mg/dl (2.5-4.9)
[2020-09-22 05:55] LABS: D Dimer 11670 ug/L FEU (0-500)
[2020-09-22] MEDS: ASPIRIN 81 MG ECTAB PO SCH (08:13)
[2020-09-22] MEDS: ASCORBIC ACID 500 MG TAB PO SCH (08:13)
[2020-09-22] MEDS: CHOLECALCIFEROL 1,000 UNITS 25 MCG TAB PO SCH (08:14)
[2020-09-22] MEDS: carvediloL 12.5 MG TAB PO SCH ×2 (08:14→21:06)
[2020-09-22] MEDS: ZINC SULFATE 220 MG CAPSULE PO SCH ×2 (08:15→21:07)
[2020-09-22] MEDS: PANTOprazole 40 MG TAB PO SCH (08:15)
[2020-09-22] MEDS: ENOXAPARIN INJ 40 MG/0.4 ML SYR SQ SCH ×2 (08:15→21:07)
[2020-09-22] MEDS: DOCUSATE SODIUM 100 MG CAP PO SCH (08:15)
--- NOTE | 2020-09-22 08:20 | XRay Report ---
XR chest 1V portable HISTORY: Shortness of breath. COMPARISON: Chest 09/20/2020. FINDINGS: No pneumothorax. There are low lung volumes and diffuse interstitial thickening, unchanged. Patchy density within the left lung base also persists. Left-sided pacemaker/defibrillator. The hear t remains mildly enlarged. No pleural effusions. Old, healed right clavicle fracture. IMPRESSION: No change in the diffuse interstitial thickening consistent with pulmonary fibrosis. Left basilar den sity also persists and could be due to the fibrosis or superimposed pneumonia. ACT 112: Negative or not required by law. Electronically signed by: Anton Gerardo M.D. 09/22/2020 8:19 AM
--- NOTE | 2020-09-22 08:36 | Critical Care Progress Note ---
Date of Service September 22, 2020 Assessment & Plan (1) Acute respiratory failure with hypoxia: Plan: Reason Critically Ill: Acute hypoxic respiratory failure secondary to COVID-19 pneumonia PLAN: Resp: Acute respiratory distress syndrome secondary to COVID-19 -Continue steroids -Consents to Tocilizumab, administered 09/21 prior to 2200 -We will receive second dose as there has not been no significant improvement and has been 8 hours since administration -CRP mildly elevated compared to yesterday Rheumatoid arthritis -On tofacitinib -Consideration given to immunosuppression however this would be relative compared to that of organ transplantation and active chemotherapy feel the benefits outweigh the risks CV: Hypertension -Continue Coreg 12.5 twice daily Hyperlipidemia -Lipitor 40 mg Fluids/Renal: Mild hyponatremia -20 mg Lasix x1 to keep patient on the veneer drier side ID: COVID-19 pneumonia -Steroids (decreased to 6 mg) and Tocilizumab -On Rocephin and doxycycline for superimposed bacterial infection -Procalcitonin negative will discontinue additional antibiotics GI/Nutrition: Heart healthy diet Heme: Mild anemia at baseline DVT prophylaxis: Lovenox 40 mg twice daily Endocrine: ICU hyperglycemia protocol Vascular access: Peripheral IVs Code Status: Full code Disposition: ICU (2) Hyponatremia: (3) Pneumonia due to COVID-19 virus: (4) ILD (interstitial lung disease): Admission and Anticipated Discharge Date Admission Date: September 20, 2020 Supervising Physician Co-Signing Physician Notes Patient was discussed on multidisciplinary rounds I have personally spent 45 minutes of critical care time in the direct management of this patient. This is a life/limb threatening event. This includes time spent evaluating patient, direct bedside care, chart review, placing orders, interpretation of diagnostic studies, discussion with consultants, patient, and/or family members regarding treatment decisions, as well as other required patient management activities. This time is exclusive of all separately billable procedures, and teaching time and separate from and in addition to any other critical care service time. Subjective Overnight had mild increase in oxygen requirements to 100%, he has already been decreased to 80% and 60 L FiO2 this morning and is saturating in the mid 90s Physical Exam Physical Exam: General: Alert. nontoxic. Skin: Warm, dry, Head: Atraumatic Ears, nose, mouth and throat: airway patent Cardiovascular: Normal peripheral perfusion Respiratory: Mild tachypnea Gastrointestinal: Non distended Musculoskeletal: No deformity Results & Data Results & Data ([facility]) Vital Signs (Past 12 Hours) Vital Signs Temp Pulse Pulse Resp BP Pulse Ox 09/22/20 07:45 52 L 16 97 09/22/20 05:52 50 L 18 130/74 94 09/22/20 05:21 36.7 C 52 L 24 132/81 93 09/22/20 04:52 50 L 17 130/70 98 09/22/20 04:22 36.7 C 50 L 18 128/70 94 09/22/20 03:52 50 L 17 128/76 97 09/22/20 03:22 36.7 C 54 L 16 107/61 92 09/22/20 03:15 56 L 19 93 09/22/20 03:00 58 L 19 91 09/22/20 01:52 53 L 25 H 132/73 92 09/22/20 01:21 36.7 C 51 L 21 121/75 94 09/22/20 00:51 54 L 18 135/65 91 09/22/20 00:22 36.7 C 0 L 17 140/68 95 09/21/20 23:51 53 L 18 148/83 H 93 09/21/20 23:22 36.7 C 58 L 17 138/71 94 09/21/20 22:52 47 L 31 H 121/69 93 09/21/20 22:45 65 15 91 09/21/20 22:22 36.7 C 57 L 17 161/79 H 96 09/21/20 21:52 0 L 11 L 132/68 91 09/21/20 21:22 36.7 C 52 L 19 97/75 L 90 09/21/20 20:52 54 L 18 136/91 93 Laboratory Results 09/22/20 09/22/20 09/22/20 Range/Units 05:13 05:13 05:13 WBC 10.11 (4.8-10.8) K/uL RBC 3.48 L (4.7-6.1) M/uL Hgb 11.1 L (14.0-18.0) g/dL Hct 31.5 L (42-52) % MCV 90.5 (80-100) fL MCH 31.9 (25-34) pg MCHC 35.2 (32-36) g/dL RDW Std Deviation 46.9 H (36.4-46.3) fL RDW Coeff of Thomas 14.2 (11.5-14.5) % Plt Count 413 H (130-400) K/uL MPV 8.4 (7.4-10.4) fL Immature Gran % (Auto) 1.0 % Neut % (Auto) 87.9 % Lymph % (Auto) 5.8 % [place] % (Auto) 5.2 % Eos % (Auto) 0.0 % Baso % (Auto) 0.1 % Neut # (Auto) 8.88 H (1.4-6.5) K/uL Lymph # (Auto) 0.59 L (1.2-3.4) K/uL [place] # (Auto) 0.53 (0.11-0.59) K/uL Eos # (Auto) 0.00 (0-0.5) K/uL Baso # (Auto) 0.01 (0-0.2) K/uL Immature Gran # (Auto) 0.10 H (0.00-0.02) K/uL D-Dimer 04015 H* (0-500) ug/L FEU Sodium (136-145) mmol/L Potassium (3.5-5.1) mmol/L Chloride (98-107) mmol/L Carbon Dioxide (21-32) mmol/L Anion Gap (3-11) BUN (7-18) mg/dl Creatinine (0.6-1.4) mg/dl Est Cr Clr Drug Dosing ml/min Est GFR ( Amer) ml/min Est GFR (Non-Af Amer) ml/min BUN/Creatinine Ratio (10-20) Glucose (70-99) mg/dl Calcium (8.5-10.1) mg/dl Phosphorus (2.5-4.9) mg/dl Magnesium (1.8-2.4) mg/dl C-Reactive Protein (0-0.29) mg/dl Procalcitonin 0.09 (0-0.5) ng/ml 09/22/20 Range/Units 05:13 WBC (4.8-10.8) K/uL RBC (4.7-6.1) M/uL Hgb (14.0-18.0) g/dL Hct (42-52) % MCV (80-100) fL MCH (25-34) pg MCHC (32-36) g/dL RDW Std Deviation (36.4-46.3) fL RDW Coeff of Thomas (11.5-14.5) % Plt Count (130-400) K/uL MPV (7.4-10.4) fL Immature Gran % (Auto) % Neut % (Auto) % Lymph % (Auto) % [place] % (Auto) % Eos % (Auto) % Baso % (Auto) % Neut # (Auto) (1.4-6.5) K/uL Lymph # (Auto) (1.2-3.4) K/uL [place] # (Auto) (0.11-0.59) K/uL Eos # (Auto) (0-0.5) K/uL Baso # (Auto) (0-0.2) K/uL Immature Gran # (Auto) (0.00-0.02) K/uL D-Dimer (0-500) ug/L FEU Sodium 131 L (136-145) mmol/L Potassium 4.5 (3.5-5.1) mmol/L Chloride 101 (98-107) mmol/L Carbon Dioxide 27 (21-32) mmol/L Anion Gap 3.0 (3-11) BUN 36 H (7-18) mg/dl Creatinine 1.00 (0.6-1.4) mg/dl Est Cr Clr Drug Dosing 71.8 ml/min Est GFR ( Amer) 80.9 ml/min Est GFR (Non-Af Amer) 69.8 ml/min BUN/Creatinine Ratio 36.4 H (10-20) Glucose 126 H (70-99) mg/dl Calcium 8.6 (8.5-10.1) mg/dl Phosphorus 3.8 (2.5-4.9) mg/dl Magnesium 2.6 H (1.8-2.4) mg/dl C-Reactive Protein 11.60 H (0-0.29) mg/dl Procalcitonin (0-0.5) ng/ml Coding Level of Care Code Critical Care 1st 30-74 mins Diagnoses Hyponatremia E87.1 Pneumonia due to COVID-19 virus U07.1; J12.82 ILD (interstitial lung disease) J84.9 Acute respiratory failure with hypoxia J96.01
[2020-09-22] MEDS ORDERED: CONSULT PHARMACY STA (08:40)
[2020-09-22] MEDS ORDERED: POTASSIUM CHLORIDE CRTAB 20 MEQ TABCR PO STA (08:43)
--- NOTE | 2020-09-22 08:45 | Pulmonology Progress Note ---
Date of Service September 22, 2020 Assessment & Plan (1) Acute and chronic respiratory failure with hypoxia: (2) Pneumonia: Laterality: left Lung location: lower lobe of lung Pneumonia type: due to unspecified organism Qualified Code(s): J18.9 - Pneumonia, unspecified organism (3) COVID-19: (4) Rheumatoid arthritis: (5) Pulmonary fibrosis: (6) ILD (interstitial lung disease): Plan: CT chest 09/20/2020 personally reviewed: Patient has interstitial thickening increased reticulation as well as honeycombing appreciated bilateral upper lobes as well as minimal in the left lower lobe Traction bronchiectasis also appreciated in the left lower lobe as well as the right lower lobe Groundglass opacities are appreciated peripherally No mediastinal lymphadenopathy --Acute hypoxic respiratory failure Multifactorial Underlying multi lobar COVID-19 pneumonia definitely playing a role Patient has most likely underlying lung disease which she was not diagnosed with --> looking at the CAT scan I think patient has ILD which could be NSIP pattern CRP 10.7 --> 11.6, procalcitonin 0.12 S/p Tocilizumab 09/21/20 Patient is out of the timeline for remdesivir Continue with dexamethasone Awake proning O2 supplementation to keep oxygen saturation 88-92% Continue with high flow and transition to CPAP/BiPAP if need be --ILD Is very difficult to say whether it is NSIP given the patient's BNP was 2335 and patient also has COVID-19 pneumonia which both of them can give groundglass opacities Patient also has rheumatoid arthritis which has been associated with ILD He is already on tofacitinib Technically patient would need a biopsy but I do not think given patient age and current condition that is a possibility He is already on steroids and will continue with the same dose --Rheumatoid arthritis On tofacitinib --Overall prognosis is guarded Plan: In/out: -790 Continue with O2 supplementation. Patient is not in any respiratory distress Patient will likely have very prolonged course given underlying ILD. Continue with dexamethasone Case discussed with RN. Please note the above document was generated using voice recognition software. It may contain grammatical, syntax or spelling errors.Any formal questions or concerns about the content, text or information contained within the body of this dictation should be directly addressed to the provider for clarification. Admission and Anticipated Discharge Date Admission Date: September 20, 2020 Subjective Patient was seen and observed on advancement of the room. Patient was lying on the left decubitus position. Saturating 96 percent on 6 L, 100% FiO2 Respiratory rate was in the mid teens. Did not seem to be in any distress Review of Systems Review of Systems: Other Physical Exam Physical Exam: Patient not examined due to coronavirus restrictions and attempts to minimize exposure to staff and consider PPE. Please refer to the hospitalist exam for complete details. Results & Data Results & Data ([facility]) Vital Signs (Past 12 Hours) Vital Signs Temp Pulse Pulse Resp BP Pulse Ox 09/22/20 07:45 52 L 16 97 09/22/20 05:52 50 L 18 130/74 94 09/22/20 05:21 36.7 C 52 L 24 132/81 93 09/22/20 04:52 50 L 17 130/70 98 09/22/20 04:22 36.7 C 50 L 18 128/70 94 09/22/20 03:52 50 L 17 128/76 97 09/22/20 03:22 36.7 C 54 L 16 107/61 92 09/22/20 03:15 56 L 19 93 09/22/20 03:00 58 L 19 91 09/22/20 01:52 53 L 25 H 132/73 92 09/22/20 01:21 36.7 C 51 L 21 121/75 94 09/22/20 00:51 54 L 18 135/65 91 09/22/20 00:22 36.7 C 0 L 17 140/68 95 09/21/20 23:51 53 L 18 148/83 H 93 09/21/20 23:22 36.7 C 58 L 17 138/71 94 09/21/20 22:52 47 L 31 H 121/69 93 09/21/20 22:45 65 15 91 09/21/20 22:22 36.7 C 57 L 17 161/79 H 96 09/21/20 21:52 0 L 11 L 132/68 91 09/21/20 21:22 36.7 C 52 L 19 97/75 L 90 09/21/20 20:52 54 L 18 136/91 93 09/22/20 05:13 09/22/20 05:13 PG Care Time/CCT Total # of Minutes Spent Total Time Spent with Patient: Total time spent is greater than 50% in coordination of care (as documented) at patient's floor/unit and/or counseling patient: Coding Level of Care Code 49449 Subseq Hosp Care Lvl 2 Diagnoses Acute and chronic respiratory failure with hypoxia J96.21 Pneumonia J18.9 Laterality: left Lung location: lower lobe of lung Pneumonia type: due to unspecified organism COVID-19 U07.1 Rheumatoid arthritis M06.9 Pulmonary fibrosis J84.10 ILD (interstitial lung disease) J84.9
[2020-09-22] MEDS ORDERED: FUROSEMIDE 20 MG in SYRINGE 0 ML IV ONE (08:50)
[2020-09-22] MEDS ORDERED: dexAMETHasone 10 MG in SYRINGE 0 ML IV SCH (09:00)
[2020-09-22] MEDS ORDERED: TOCILIZUMAB IV ONE (10:00)
[2020-09-22] MEDS ORDERED: [UNRECOGNIZED DRUG - OTHER] IV ONE (10:00)
[2020-09-22] MEDS: dexAMETHasone 6 MG in SYRINGE 0 ML IV SCH (10:16)
[2020-09-22] MEDS: ATORVASTATIN 40 MG TAB PO SCH (21:06)
--- NOTE | 2020-09-22 21:53 | Hospitalist Progress Note ---
Date of Service September 22, 2020 Assessment & Plan (1) Acute respiratory failure with hypoxia: Plan: 2nd COVID-19 pneumonia in setting of a baseline ILD (rheumatoid lung?). Patient with rapidly declining pulmonary status shortly after admission necessitating transfer to ICU. Cont HFNC vs BiPAP. Patient requests full code status. Giving Lasix again today Treating Covid as below Continue dexamethasone 6 mg IV every 24 hours DuoNebs scheduled (2) Pneumonia due to COVID-19 virus: Plan: First symptoms on 09/11/2020. Not vaccinated due to patient choice. Had been taking dexamethasone at [facility] prior to admission. With acute respiratory failure with hypoxia requiring high flow nasal cannula as above Cont dexamethasone Too late in the illness course for remdesivir. -Has received tocilizumab (meets criteria with elevated CRP, rapid increase in FiO2 requirements, <72 hrs into his hospitalization, etc) by the ICU team. Antibiotics for bacterial pneumonia were discontinued today as procalcitonin negative Follow chest x-ray Prone positioning (3) ILD (interstitial lung disease): Plan: Appears to have a baseline ILD. Rheumatoid lung? (has had RA for 40+ years). (4) Hypertension: Plan: Controlled. Continue coreg. (5) Coronary arteriosclerosis: Plan: Continue home aspirin, beta-cass, and statin. No evidence of ischemia. (6) Rheumatoid arthritis: Plan: Typically takes tofacitinib. This will be held especially since tocilizumab will be employed. (7) Hyperlipemia: Plan: Continue lipitor. (8) Hyponatremia: Plan: Mildly low but stable. Repeat bmp am. If any worsening obtain serum osm, urine osm, urine Na. (9) Esophagitis: Plan: as seen on CTA chest. Continue PPI (10) DVT prophylaxis: Plan: Lovenox to 40 mg BID Plan: Disposition-continued stay in the ICU Admission and Anticipated Discharge Date Admission Date: September 20, 2020 Subjective Patient observed through the window and was sleeping in the sides position. He remains on high flow nasal cannula. Physical Exam Constitutional: WD/WN, vitals as above Results & Data Results & Data ([facility]) Vital Signs (Past 12 Hours) Vital Signs Temp Pulse Pulse Resp BP Pulse Ox 09/22/20 19:21 51 L 18 92 09/22/20 16:00 50 L 09/22/20 15:52 52 L 15 121/67 96 09/22/20 15:47 51 L 16 94 09/22/20 15:22 51 L 14 138/80 95 09/22/20 14:52 50 L 16 124/69 95 09/22/20 14:21 20 124/74 89 L 09/22/20 13:52 36.8 C 50 L 0 L 112/67 95 09/22/20 13:22 50 L 22 120/62 93 09/22/20 12:52 51 L 20 137/47 L 85 L 09/22/20 12:22 37.0 C 89 21 126/62 90 09/22/20 11:52 51 L 14 138/103 H 94 09/22/20 11:22 50 L 16 164/82 H 94 09/22/20 11:20 51 L 16 93 09/22/20 10:22 51 L 28 H 147/78 H 96 Laboratory Results 09/22/20 09/22/20 09/22/20 Range/Units 05:13 05:13 05:13 WBC 10.11 (4.8-10.8) K/uL RBC 3.48 L (4.7-6.1) M/uL Hgb 11.1 L (14.0-18.0) g/dL Hct 31.5 L (42-52) % MCV 90.5 (80-100) fL MCH 31.9 (25-34) pg MCHC 35.2 (32-36) g/dL RDW Std Deviation 46.9 H (36.4-46.3) fL RDW Coeff of Thomas 14.2 (11.5-14.5) % Plt Count 413 H (130-400) K/uL MPV 8.4 (7.4-10.4) fL Immature Gran % (Auto) 1.0 % Neut % (Auto) 87.9 % Lymph % (Auto) 5.8 % [place] % (Auto) 5.2 % Eos % (Auto) 0.0 % Baso % (Auto) 0.1 % Neut # (Auto) 8.88 H (1.4-6.5) K/uL Lymph # (Auto) 0.59 L (1.2-3.4) K/uL [place] # (Auto) 0.53 (0.11-0.59) K/uL Eos # (Auto) 0.00 (0-0.5) K/uL Baso # (Auto) 0.01 (0-0.2) K/uL Immature Gran # (Auto) 0.10 H (0.00-0.02) K/uL D-Dimer 30354 H* (0-500) ug/L FEU Sodium (136-145) mmol/L Potassium (3.5-5.1) mmol/L Chloride (98-107) mmol/L Carbon Dioxide (21-32) mmol/L Anion Gap (3-11) BUN (7-18) mg/dl Creatinine (0.6-1.4) mg/dl Est Cr Clr Drug Dosing ml/min Est GFR ( Amer) ml/min Est GFR (Non-Af Amer) ml/min BUN/Creatinine Ratio (10-20) Glucose (70-99) mg/dl Calcium (8.5-10.1) mg/dl Phosphorus (2.5-4.9) mg/dl Magnesium (1.8-2.4) mg/dl C-Reactive Protein (0-0.29) mg/dl Procalcitonin 0.09 (0-0.5) ng/ml 09/22/20 Range/Units 05:13 WBC (4.8-10.8) K/uL RBC (4.7-6.1) M/uL Hgb (14.0-18.0) g/dL Hct (42-52) % MCV (80-100) fL MCH (25-34) pg MCHC (32-36) g/dL RDW Std Deviation (36.4-46.3) fL RDW Coeff of Thomas (11.5-14.5) % Plt Count (130-400) K/uL MPV (7.4-10.4) fL Immature Gran % (Auto) % Neut % (Auto) % Lymph % (Auto) % [place] % (Auto) % Eos % (Auto) % Baso % (Auto) % Neut # (Auto) (1.4-6.5) K/uL Lymph # (Auto) (1.2-3.4) K/uL [place] # (Auto) (0.11-0.59) K/uL Eos # (Auto) (0-0.5) K/uL Baso # (Auto) (0-0.2) K/uL Immature Gran # (Auto) (0.00-0.02) K/uL D-Dimer (0-500) ug/L FEU Sodium 131 L (136-145) mmol/L Potassium 4.5 (3.5-5.1) mmol/L Chloride 101 (98-107) mmol/L Carbon Dioxide 27 (21-32) mmol/L Anion Gap 3.0 (3-11) BUN 36 H (7-18) mg/dl Creatinine 1.00 (0.6-1.4) mg/dl Est Cr Clr Drug Dosing 71.8 ml/min Est GFR ( Amer) 80.9 ml/min Est GFR (Non-Af Amer) 69.8 ml/min BUN/Creatinine Ratio 36.4 H (10-20) Glucose 126 H (70-99) mg/dl Calcium 8.6 (8.5-10.1) mg/dl Phosphorus 3.8 (2.5-4.9) mg/dl Magnesium 2.6 H (1.8-2.4) mg/dl C-Reactive Protein 11.60 H (0-0.29) mg/dl Procalcitonin (0-0.5) ng/ml Diagnostic Findings Chest X-Ray 09/22/20 07:00 XR chest 1V portable HISTORY: Shortness of breath. COMPARISON: Chest 09/20/2020. FINDINGS: No pneumothorax. There are low lung volumes and diffuse interstitial thickening, unchanged. Patchy density within the left lung base also persists. Left-sided pacemaker/defibrillator. The heart remains mildly enlarged. No pleural effusions. Old, healed right clavicle fracture. IMPRESSION: No change in the diffuse interstitial thickening consistent with pulmonary fibrosis. Left basilar density also persists and could be due to the fibrosis or superimposed pneumonia. ACT 112: Negative or not required by law. Electronically signed by: Anton Gerardo M.D. 09/22/2020 8:19 AM PG Care Time/CCT Total # of Minutes Spent Total Time Spent with Patient: Total time spent is greater than 50% in co ordination of care (as documented) at patient's floor/unit and/or counseling patient: Coding Level of Care Code 72957 Subseq Hosp Care Lvl 1 Diagnoses Acute respiratory failure with hypoxia J96.01 Pneumonia due to COVID-19 virus U07.1; J12.82 ILD (interstitial lung disease) J84.9 Hypertension I10 Coronary arteriosclerosis I25.10 Rheumatoid arthritis M06.9 Hyperlipemia E78.5 Hyponatremia E87.1 Esophagitis K20.90 DVT prophylaxis Z29.9
[2020-09-23] MEDS: ALBUT/IPRATROP 3MG/0.5MG NEB 3 ML VIAL NEB SCH ×6 (03:17→23:50)
[2020-09-23 05:41] LABS: Basophils # (auto) 0.01 K/uL (0-0.2); Basophils % (auto) 0.1 %; Hematocrit (blood only) 34.2 % (42-52); Hemoglobin 12.1 g/dL (14.0-18.0); Immature Granulocytes # (auto) 0.07 K/uL (0.00-0.02); Immature Granulocytes % (auto) 0.7 %; Lymphocytes # (auto) 0.98 K/uL (1.2-3.4); Lymphocytes % (auto) 10.4 %; Mean Corpuscular Hemoglobin 32.4 pg (25-34); Mean Corpuscular Hgb Conc 35.4 g/dL (32-36); Mean Corpuscular Volume 91.4 fL (80-100); Mean Platelet Volume 8.6 fL (7.4-10.4); Monocytes # (auto) 0.11 K/uL (0.11-0.59); Monocytes % (auto) 1.2 %; Neutrophils # (auto) 8.21 K/uL (1.4-6.5); Neutrophils % (auto) 87.6 %; Platelet Count 481 K/uL (130-400); RDW Coefficient of Variation 14.2 % (11.5-14.5); RDW Standard Deviation 47.1 fL (36.4-46.3); Red Blood Count 3.74 M/uL (4.7-6.1); White Blood Count 9.38 K/uL (4.8-10.8)
[2020-09-23 06:02] LABS: BUN Creatinine Ratio 43.6 (10-20); Calcium 8.8 mg/dl (8.5-10.1); Est GFR (Non-African American) 59.6 ml/min; Magnesium 2.9 mg/dl (1.8-2.4); Potassium 4.6 mmol/L (3.5-5.1)
[2020-09-23 06:03] LABS: Phosphorus 3.3 mg/dl (2.5-4.9)
--- NOTE | 2020-09-23 08:05 | Critical Care Progress Note ---
Date of Service September 23, 2020 Assessment & Plan (1) Acute respiratory failure with hypoxia: Plan: Reason Critically Ill: Acute hypoxic respiratory failure secondary to COVID-19 pneumonia PLAN: Resp: Acute respiratory distress syndrome secondary to COVID-19: Worsening on 100% FiO2 -Continue steroids -Consents to Tocilizumab, administered 09/21 and second dose on 09/22 -Continue bronchodilators -Consideration given to intubation mechanical ventilation Rheumatoid arthritis -On tofacitinib -Continue to hold CV: Hypertension -Continue Coreg 12.5 twice daily Hyperlipidemia -Lipitor 40 mg Fluids/Renal: Mild hyponatremia: Improved -20 mg Lasix x1 to keep patient on the sawdust drier side -Goal 1 L negative today ID: COVID-19 pneumonia -Steroids (decreased to 6 mg) and Tocilizumab: Received 2 doses GI/Nutrition: Heart healthy diet Heme: Mild anemia at baseline DVT prophylaxis: Lovenox 40 mg twice daily Endocrine: ICU hyperglycemia protocol Vascular access: Peripheral IVs Code Status: DNR in event of cardiac arrest -Patient agreeable to intubation in event of respiratory insufficiency -Patient does not feel he would desire tracheostomy in event prolonged intubation Disposition: ICU (2) Hyponatremia: (3) Pneumonia due to COVID-19 virus: (4) ILD (interstitial lung disease): Admission and Anticipated Discharge Date Admission Date: September 20, 2020 Supervising Physician Co-Signing Physician Notes Patient was discussed on multidisciplinary rounds I have personally spent 35 minutes of critical care time in the direct management of this patient. This is a life/limb threatening event. This includes time spent evaluating patient, direct bedside care, chart review, placing orders, interpretation of diagnostic studies, discussion with cons ultants, patient, and/or family members regarding treatment decisions, as well as other required patient management activities. This time is exclusive of all separately billable procedures, and teaching time and separate from and in addition to any other critical care service time. Subjective No overnight events Had discussion of likelihood of successful cardiac resuscitation in the event of cardiac arrest and patient prefers to be DNR/DNI in event of cardiac arrest I will update his CODE STATUS. Review of Systems Review of Systems: Patient denies shortness of breath feels normal Physical Exam Physical Exam: General: Alert. nontoxic. Skin: Warm, dry, Head: Atraumatic Ears, nose, mouth and throat: airway patent Cardiovascular: Normal peripheral perfusion Respiratory: Mild tachypnea Gastrointestinal: Non distended Musculoskeletal: No deformity Results & Data Results & Data ([facility]) Vital Signs (Past 12 Hours) Vital Signs Temp Pulse Pulse Resp BP Pulse Ox 09/23/20 05:22 71 21 129/63 81 L 09/23/20 04:21 50 L 19 133/75 93 09/23/20 03:22 50 L 19 143/74 H 95 09/23/20 03:19 51 L 22 95 09/23/20 03:17 51 L 95 09/23/20 02:22 50 L 8 L 197/85 H 89 L 09/23/20 01:22 51 L 18 131/68 90 09/23/20 00:22 64 27 H 129/68 87 L 09/22/20 23:30 80 L 09/22/20 23:22 74 19 149/78 H 84 L 09/22/20 23:17 50 L 20 90 09/22/20 23:04 50 L 90 09/22/20 22:22 50 L 18 121/65 91 09/22/20 21:51 51 L 26 H 145/76 H 89 L 09/22/20 21:21 50 L 21 142/79 H 88 L 09/22/20 20:51 51 L 20 128/76 93 09/22/20 20:22 37.7 C H 50 L 16 133/67 94 Laboratory Results 09/23/20 09/23/20 Range/Units 05:28 05:28 WBC 9.38 (4.8-10.8) K/uL RBC 3.74 L (4.7-6.1) M/uL Hgb 12.1 L (14.0-18.0) g/dL Hct 34.2 L (42-52) % MCV 91.4 (80-100) fL MCH 32.4 (25-34) pg MCHC 35.4 (32-36) g/dL RDW Std Deviation 47.1 H (36.4-46.3) fL RDW Coeff of Thomas 14.2 (11.5-14.5) % Plt Count 481 H (130-400) K/uL MPV 8.6 (7.4-10.4) fL Immature Gran % (Auto) 0.7 % Neut % (Auto) 87.6 % Lymph % (Auto) 10.4 % [place] % (Auto) 1.2 % Eos % (Auto) 0.0 % Baso % (Auto) 0.1 % Neut # (Auto) 8.21 H (1.4-6.5) K/uL Lymph # (Auto) 0.98 L (1.2-3.4) K/uL [place] # (Auto) 0.11 (0.11-0.59) K/uL Eos # (Auto) 0.00 (0-0.5) K/uL Baso # (Auto) 0.01 (0-0.2) K/uL Immature Gran # (Auto) 0.07 H (0.00-0.02) K/uL Sodium 134 L (136-145) mmol/L Potassium 4.6 (3.5-5.1) mmol/L Chloride 103 (98-107) mmol/L Carbon Dioxide 27 (21-32) mmol/L Anion Gap 4.0 (3-11) BUN 50 H (7-18) mg/dl Creatinine 1.14 (0.6-1.4) mg/dl Est Cr Clr Drug Dosing 63.0 ml/min Est GFR ( Amer) 69.0 ml/min Est GFR (Non-Af Amer) 59.6 ml/min BUN/Creatinine Ratio 43.6 H (10-20) Glucose 105 H (70-99) mg/dl Calcium 8.8 (8.5-10.1) mg/dl Phosphorus 3.3 (2.5-4.9) mg/dl Magnesium 2.9 H (1.8-2.4) mg/dl Coding Level of Care Code Critical Care 1st 30-74 mins Diagnoses Acute respiratory failure with hypoxia J96.01 Hyponatremia E87.1 Pneumonia due to COVID-19 virus U07.1; J12.82 ILD (interstitial lung disease) J84.9
[2020-09-23] MEDS: carvediloL 12.5 MG TAB PO SCH ×2 (08:11→20:03)
[2020-09-23] MEDS: ASPIRIN 81 MG ECTAB PO SCH (08:13)
[2020-09-23] MEDS: DOCUSATE SODIUM 100 MG CAP PO SCH (08:13)
[2020-09-23] MEDS: ERGOCALCIFEROL 50,000 UNITS 1250 MCG CAP PO SCH (08:13)
[2020-09-23] MEDS: PANTOprazole 40 MG TAB PO SCH (08:13)
[2020-09-23] MEDS: ZINC SULFATE 220 MG CAPSULE PO SCH ×2 (08:13→20:03)
[2020-09-23] MEDS: ASCORBIC ACID 500 MG TAB PO SCH (08:14)
[2020-09-23] MEDS: dexAMETHasone 6 MG in SYRINGE 0 ML IV SCH (08:14)
[2020-09-23] MEDS: CHOLECALCIFEROL 1,000 UNITS 25 MCG TAB PO SCH (08:14)
[2020-09-23] MEDS: ENOXAPARIN INJ 40 MG/0.4 ML SYR SQ SCH ×2 (08:14→20:02)
[2020-09-23] MEDS ORDERED: FUROSEMIDE 20 MG in SYRINGE 0 ML IV ONE (08:15)
--- NOTE | 2020-09-23 09:20 | XRay Report ---
XR chest 1V portable CLINICAL HISTORY: Respiratory failure. COMPARISON STUDY: Chest CT September 20, 2020. Chest radiograph March 25, 2020 FINDINGS: A left subclavian biventricular pacer/AICD is in place. Old distal right clavicular fractur e is incidentally noted. Left basilar opacity persists. This has slightly improved. There is diffuse interstitial thickening. Cardiomediastinal silhouette is stable. There is no pneumothorax or pleural effusion. IMPRESSION: 1. Slight improvement in left basilar opacity which favors pneumonia. 2. Diffuse interstitial thickening which favors interstitial lung disease. ACT 112: Negative or not required by law. Electronically signed by: Angelo Fowler M.D. 09/23/2020 9:19 AM
--- NOTE | 2020-09-23 11:24 | Hospitalist Progress Note ---
Date of Service September 23, 2020 Assessment & Plan (1) Acute respiratory failure with hypoxia: Plan: 2nd COVID-19 pneumonia in setting of a baseline ILD (rheumatoid lung?). Patient with rapidly declining pulmonary status shortly after admission necessitating transfer to ICU. Cont HFNC vs BiPAP. Patient requests full code status. Giving Lasix again today for 3rd day in a row Treating Covid as below Continue dexamethasone 6 mg IV every 24 hours DuoNebs scheduled (2) Pneumonia due to COVID-19 virus: Plan: First symptoms on 09/11/2020. Not vaccinated due to patient choice. Had been taking dexamethasone at [facility] prior to admission. With acute respiratory failure with hypoxia requiring high flow nasal cannula as above Cont dexamethasone Too late in the illness course for remdesivir. -Has received tocilizumab (meets criteria with elevated CRP, rapid increase in FiO2 requirements, <72 hrs into his hospitalization, etc) by the ICU team. Antibiotics for bacterial pneumonia were discontinued as procalcitonin negative Follow chest [id number] improvement on 09/23 continue intermittent Prone positioning (3) ILD (interstitial lung disease): Plan: Appears to have a baseline ILD. Rheumatoid lung? (has had RA for 40+ years). (4) Hypertension: Plan: Controlled. Continue coreg. (5) Coronary arteriosclerosis: Plan: Continue home aspirin, beta-cass, and statin. No evidence of ischemia. (6) Rheumatoid arthritis: Plan: Typically takes tofacitinib. This will be held especially since tocilizumab will be employed. (7) Hyperlipemia: Plan: Continue lipitor. (8) Hyponatremia: Plan: Mildly low but stable. Repeat bmp am. If any worsening obtain serum osm, urine osm, urine Na. (9) Esophagitis: Plan: as seen on CTA chest. Continue PPI (10) DVT prophylaxis: Plan: Lovenox 40 mg BID Plan: Disposition-continued stay in the ICU Admission and Anticipated Discharge Date Admission Date: September 20, 2020 Subjective remains on HFNC, no overnight events. remains on 60L 100%FiO2 not seen in person due to COVID precautions and being seen by Story Analyst Physical Exam Constitutional: WD/WN, vitals as above Respiratory: + tachypneic Results & Data Results & Data ([facility]) Vital Signs (Past 12 Hours) Vital Signs Pulse Pulse Resp BP Pulse Ox 09/23/20 08:07 55 L 19 91 09/23/20 05:22 71 21 129/63 81 L 09/23/20 04:21 50 L 19 133/75 93 09/23/20 03:22 50 L 19 143/74 H 95 09/23/20 03:19 51 L 22 95 09/23/20 03:17 51 L 95 09/23/20 02:22 50 L 8 L 197/85 H 89 L 09/23/20 01:22 51 L 18 131/68 90 09/23/20 00:22 64 27 H 129/68 87 L 09/22/20 23:30 80 L Laboratory Results 09/23/20 05:28 09/23/20 05:28 Diagnostic Findings Chest X-Ray 09/23/20 07:00 XR chest 1V portable CLINICAL HISTORY: Respiratory failure. COMPARISON STUDY: Chest CT September 20, 2020. Chest radiograph March 25, 2020 FINDINGS: A left subclavian biventricular pacer/AICD is in place. Old distal right clavicular fracture is incidentally noted. Left basilar opacity persists. This has slightly improved. There is diffuse interstitial thickening. Cardiomediastinal silhouette is stable. There is no pneumothorax or pleural effusion. IMPRESSION: 1. Slight improvement in left basilar opacity which favors pneumonia. 2. Diffuse interstitial thickening which favors interstitial lung disease. ACT 112: Negative or not required by law. Electronically signed by: Angelo Fowler M.D. 09/23/2020 9:19 AM PG Care Time/CCT Total # of Minutes Spent Total Time Spent with Patient: Total time spent is greater than 50% in coordination of care (as documented) at patient's floor/unit and/or counseling patient: Coding Level of Care Code 68489 Subseq Hosp Care Lvl 1 Diagnoses Acute respiratory failure with hypoxia J96.01 Pneumonia due to COVID-19 virus U07.1; J12.82 ILD (interstitial lung disease) J84.9 Hypertension I10 Coronary arteriosclerosis I25.10 Rheumatoid arthritis M06.9 Hyperlipemia E78.5 Hyponatremia E87.1 Esophagitis K20.90 DVT prophylaxis Z29.9
[2020-09-23] MEDS: ATORVASTATIN 40 MG TAB PO SCH (20:02)
[2020-09-23] MEDS ORDERED: MELATONIN 3 MG TAB PO PRN (20:36)
[2020-09-24] MEDS: ALBUT/IPRATROP 3MG/0.5MG NEB 3 ML VIAL NEB SCH ×6 (03:34→23:22)
[2020-09-24 04:53] LABS: Eosinophils # (auto) 0.03 K/uL (0-0.5); Eosinophils % (auto) 0.4 %; Hematocrit (blood only) 35.7 % (42-52); Immature Granulocytes # (auto) 0.04 K/uL (0.00-0.02); Immature Granulocytes % (auto) 0.5 %; Lymphocytes % (auto) 4.8 %; Mean Corpuscular Hemoglobin 33.2 pg (25-34); Mean Corpuscular Hgb Conc 36.4 g/dL (32-36); Mean Corpuscular Volume 91.1 fL (80-100); Mean Platelet Volume 8.5 fL (7.4-10.4); Monocytes # (auto) 0.29 K/uL (0.11-0.59); Monocytes % (auto) 3.4 %; Neutrophils # (auto) 7.65 K/uL (1.4-6.5); Neutrophils % (auto) 90.9 %; Platelet Count 512 K/uL (130-400); RDW Coefficient of Variation 14.3 % (11.5-14.5); RDW Standard Deviation 47.1 fL (36.4-46.3); Red Blood Count 3.92 M/uL (4.7-6.1); White Blood Count 8.41 K/uL (4.8-10.8)
[2020-09-24 05:05] LABS: BUN Creatinine Ratio 56.2 (10-20); Calcium 8.8 mg/dl (8.5-10.1); Creatinine Clr Calc Pharmacy 66.5 ml/min; Est GFR (African American) 73.7 ml/min; Est GFR (Non-African American) 63.6 ml/min; Magnesium 2.9 mg/dl (1.8-2.4); Phosphorus 3.3 mg/dl (2.5-4.9); Potassium 4.2 mmol/L (3.5-5.1)
--- NOTE | 2020-09-24 06:51 | Critical Care Progress Note ---
Date of Service September 24, 2020 Assessment & Plan (1) Acute respiratory failure with hypoxia: Plan: Reason Critically Ill: Acute hypoxic respiratory failure secondary to COVID-19 pneumonia PLAN: Resp: Acute respiratory distress syndrome secondary to COVID-19: Worsening on 100% FiO2 and continuous positive airway pressure -Continue steroids -Consents to Tocilizumab, administered 09/21 and second dose on 09/22 -Continue bronchodilators -Consideration given to intubation mechanical ventilation Rheumatoid arthritis -On tofacitinib -Continue to hold CV: Hypertension -Continue Coreg 12.5 twice daily Hyperlipidemia -Lipitor 40 mg Fluids/Renal: Mild hyponatremia: Improved ID: COVID-19 pneumonia -Steroids (decreased to 6 mg) and Tocilizumab: Received 2 doses GI/Nutrition: Heart healthy diet Heme: Mild anemia at baseline DVT prophylaxis: Lovenox 40 mg twice daily Endocrine: ICU hyperglycemia protocol Vascular access: Peripheral IVs Code Status: DNR in event of cardiac arrest -Patient agreeable to intubation in event of respiratory insufficiency -Patient does not feel he would desire tracheostomy in event prolonged intubation Disposition: ICU (2) Hyponatremia: (3) Pneumonia due to COVID-19 virus: (4) ILD (interstitial lung disease): Admission and Anticipated Discharge Date Admission Date: September 20, 2020 Supervising Physician Co-Signing Physician Notes Patient was discussed with bedside nursing I have personally spent 35 minutes of critical care time in the direct management of this patient. This is a life/limb threatening event. This includes time spent evaluating patient, direct bedside care, chart review, placing orders, interpretation of diagnostic studies, discussion with consultants, patient, and/or family members regarding treatment decisions, as well as other required patient management activities. This time is exclusive of all separately billable procedures, and teaching time and separate from and in addition to any other critical care service time. Subjective Overnight increasing ventilatory requirements requiring CPAP therapy now at this time Physical Exam Physical Exam: General: Alert. nontoxic. Skin: Warm, dry, Head: Atraumatic Ears, nose, mouth and throat: airway patent Cardiovascular: Normal peripheral perfusion Respiratory: Mild tachypnea Gastrointestinal: Non distended Musculoskeletal: No deformity Results & Data Results & Data ([facility]) Vital Signs (Past 12 Hours) Vital Signs Temp Pulse Pulse Resp BP Pulse Ox 09/24/20 06:22 72 22 140/94 95 09/24/20 05:52 57 L 17 143/82 H 93 09/24/20 05:28 59 L 22 94 09/24/20 05:22 57 L 22 137/76 94 09/24/20 04:51 36.6 C 63 21 130/91 84 L 09/24/20 04:22 67 20 131/79 83 L 09/24/20 03:52 36.6 C 50 L 20 130/81 95 09/24/20 03:35 58 L 24 95 09/24/20 03:22 56 L 21 135/78 92 09/24/20 02:51 36.6 C 53 L 16 132/84 93 09/24/20 02:22 60 33 H 136/73 88 L 09/24/20 01:52 36.6 C 65 33 H 140/98 91 09/24/20 01:22 50 L 22 152/89 H 94 09/24/20 00:52 36.6 C 50 L 22 173/96 H 89 L 09/24/20 00:22 50 L 19 160/79 H 91 09/23/20 23:52 54 L 22 91 09/23/20 23:51 36.6 C 55 L 17 130/74 86 L 09/23/20 23:22 57 L 16 123/63 85 L 09/23/20 22:52 36.6 C 62 13 122/81 87 L 09/23/20 22:21 51 L 22 157/93 H 92 09/23/20 21:52 36.6 C 67 13 138/88 88 L 09/23/20 21:22 55 L 16 152/103 H 93 09/23/20 20:52 36.6 C 58 L 16 162/96 H 88 L 09/23/20 20:21 61 14 132/77 92 09/23/20 20:08 60 20 92 09/23/20 19:52 36.6 C 63 10 L 126/68 93 09/23/20 19:21 55 L 14 146/86 H 92 Laboratory Results 09/24/20 09/24/20 09/24/20 Range/Units 04:32 04:32 04:32 WBC 8.41 (4.8-10.8) K/uL RBC 3.92 L (4.7-6.1) M/uL Hgb 13.0 L (14.0-18.0) g/dL Hct 35.7 L (42-52) % MCV 91.1 (80-100) fL MCH 33.2 (25-34) pg MCHC 36.4 H (32-36) g/dL RDW Std Deviation 47.1 H (36.4-46.3) fL RDW Coeff of Thomas 14.3 (11.5-14.5) % Plt Count 512 H (130-400) K/uL MPV 8.5 (7.4-10.4) fL Immature Gran % (Auto) 0.5 % Neut % (Auto) 90.9 % Lymph % (Auto) 4.8 % [place] % (Auto) 3.4 % Eos % (Auto) 0.4 % Baso % (Auto) 0.0 % Neut # (Auto) 7.65 H (1.4-6.5) K/uL Lymph # (Auto) 0.40 L (1.2-3.4) K/uL [place] # (Auto) 0.29 (0.11-0.59) K/uL Eos # (Auto) 0.03 (0-0.5) K/uL Baso # (Auto) 0.00 (0-0.2) K/uL Immature Gran # (Auto) 0.04 H (0.00-0.02) K/uL Sodium 135 L (136-145) mmol/L Potassium 4.2 (3.5-5.1) mmol/L Chloride 103 (98-107) mmol/L Carbon Dioxide 26 (21-32) mmol/L Anion Gap 6.0 (3-11) BUN 61 H (7-18) mg/dl Creatinine 1.08 (0.6-1.4) mg/dl Est Cr Clr Drug Dosing 66.5 ml/min Est GFR ( Amer) 73.7 ml/min Est GFR (Non-Af Amer) 63.6 ml/min BUN/Creatinine Ratio 56.2 H (10-20) Glucose 97 (70-99) mg/dl Calcium 8.8 (8.5-10.1) mg/dl Phosphorus 3.3 (2.5-4.9) mg/dl Magnesium 2.9 H (1.8-2.4) mg/dl C-Reactive Protein Pending Coding Level of Care Code Critical Care 1st 30-74 mins Diagnoses Acute respiratory failure with hypoxia J96.01 Hyponatremia E87.1 Pneumonia due to COVID-19 virus U07.1; J12.82 ILD (interstitial lung disease) J84.9
--- NOTE | 2020-09-24 08:07 | Hospitalist Progress Note ---
Date of Service September 24, 2020 Assessment & Plan (1) Acute respiratory failure with hypoxia: Plan: 2nd COVID-19 pneumonia in setting of a baseline ILD (rheumatoid lung?). Patient with rapidly declining pulmonary status shortly after admission necessitating transfer to ICU. Cont HFNC vs BiPAP. Willl defer ongoing diuretics to ICU management - continues with small negative balance Treating Covid as below Continue dexamethasone 6 mg IV every 24 hours, CRP decreasing DuoNebs scheduled (2) Pneumonia due to COVID-19 virus: Plan: First symptoms on 09/11/2020. Not vaccinated due to patient choice. Had been taking dexamethasone at [facility] prior to admission. With acute respiratory failure with hypoxia requiring high flow nasal cannula as above Cont dexamethasone Too late in the illness course for remdesivir. -Has received tocilizumab (meets criteria with elevated CRP, rapid increase in FiO2 requirements, <72 hrs into his hospitalization, etc) by the ICU team. Antibiotics for bacterial pneumonia were discontinued as procalcitonin negative Follow chest [id number] improvement on 09/23 continue intermittent Prone positioning (3) ILD (interstitial lung disease): Plan: Appears to have a baseline ILD. Rheumatoid lung? (has had RA for 40+ years). (4) Hypertension: Plan: Controlled. Continue coreg. (5) Coronary arteriosclerosis: Plan: Continue home aspirin, beta-cass, and statin. No evidence of ischemia. (6) Rheumatoid arthritis: Plan: Typically takes tofacitinib. This will be held especially since tocilizumab will be employed. (7) Hyperlipemia: Plan: Continue lipitor. (8) Esophagitis: Plan: as seen on CTA chest. Continue PPI Plan: VTE prophyalxis - Lovenox 40 mg BID Disposition-continued stay in the ICU Admission and Anticipated Discharge Date Admission Date: September 20, 2020 Subjective No acute events overnight. Patient feels he is improving day to day. Continues on high flow O2 FiO2 100%. Infrequent dry cough. No pain. Short of breath on minimal exertion. No leg pain. Review of Systems Review of Systems: All systems reviewed & are unremarkable except as noted in HPI & below Physical Exam Constitutional: WD/WN, vitals as above no acute distress Eyes: + anicteric sclerae; normal pupil size ENMT: Mouth: oral mucous membranes not dry Neck: trachea midline, no thyromegaly Respiratory: + abnormal respiratory effort (poor inspiratory effort), no respiratory distress, no cough and not tachypneic Auscultation: + diminished lung sounds (throughout) Cardiovascular: Rate/Rhythm: regular rate and regular rhythm Heart Sounds: no murmur Extremities: no calf tenderness and no pedal edema Gastrointestinal (Abdomen): Inspection/Auscultation: normal bowel sounds Percussion/Palpation: abdomen soft; abdomen nontender Skin: no rashes, warm and dry Neurologic: moves all extremities and awake; not confused Psychiatric: A+Ox3, euthymic affect Results & Data Results & Data ([facility]) Vital Signs (Past 12 Hours) Vital Signs Temp Pulse Pulse Resp BP Pulse Ox 09/24/20 08:01 78 25 H 92 09/24/20 07:59 78 25 H 92 09/24/20 06:22 72 22 140/94 95 09/24/20 05:52 57 L 17 143/82 H 93 09/24/20 05:28 59 L 22 94 09/24/20 05:22 57 L 22 137/76 94 09/24/20 04:51 36.6 C 63 21 130/91 84 L 09/24/20 04:22 67 20 131/79 83 L 09/24/20 03:52 36.6 C 50 L 20 130/81 95 09/24/20 03:35 58 L 24 95 09/24/20 03:22 56 L 21 135/78 92 09/24/20 02:51 36.6 C 53 L 16 132/84 93 09/24/20 02:22 60 33 H 136/73 88 L 09/24/20 01:52 36.6 C 65 33 H 140/98 91 09/24/20 01:22 50 L 22 152/89 H 94 09/24/20 00:52 36.6 C 50 L 22 173/96 H 89 L 09/24/20 00:22 50 L 19 160/79 H 91 09/23/20 23:52 54 L 22 91 09/23/20 23:51 36.6 C 55 L 17 130/74 86 L 09/23/20 23:22 57 L 16 123/63 85 L 09/23/20 22:52 36.6 C 62 13 122/81 87 L 09/23/20 22:21 51 L 22 157/93 H 92 09/23/20 21:52 36.6 C 67 13 138/88 88 L 09/23/20 21:22 55 L 16 152/103 H 93 09/23/20 20:52 36.6 C 58 L 16 162/96 H 88 L 09/23/20 20:21 61 14 132/77 92 09/23/20 20:08 60 20 92 PG Care Time/CCT Total # of Minutes Spent Total Time Spent with Patient: Total time spent is greater than 50% in coordination of care (as documented) at patient's floor/unit and/or counseling patient: Coding Level of Care Code 28924 Subseq Hosp Care Lvl 2 Diagnoses Acute respiratory failure with hypoxia J96.01 Pneumonia due to COVID-19 virus U07.1; J12.82 ILD (interstitial lung disease) J84.9 Hypertension I10 Coronary arteriosclerosis I25.10 Rheumatoid arthritis M06.9 Hyperlipemia E78.5 Esophagitis K20.90
[2020-09-24] MEDS: ENOXAPARIN INJ 40 MG/0.4 ML SYR SQ SCH ×2 (08:56→19:26)
[2020-09-24] MEDS: carvediloL 12.5 MG TAB PO SCH ×2 (08:56→19:26)
[2020-09-24] MEDS: ZINC SULFATE 220 MG CAPSULE PO SCH ×2 (08:56→19:27)
[2020-09-24] MEDS: dexAMETHasone 6 MG in SYRINGE 0 ML IV SCH (08:56)
[2020-09-24] MEDS: PANTOprazole 40 MG TAB PO SCH (08:56)
[2020-09-24] MEDS: ASPIRIN 81 MG ECTAB PO SCH (08:57)
[2020-09-24] MEDS: CHOLECALCIFEROL 1,000 UNITS 25 MCG TAB PO SCH (08:57)
[2020-09-24] MEDS: ASCORBIC ACID 500 MG TAB PO SCH (08:57)
--- NOTE | 2020-09-24 09:12 | XRay Report ---
SINGLE VIEW CHEST CLINICAL HISTORY: Respiratory failure FINDINGS: An AP, portable, upright chest radiograph is compared to study dated 09/23/2020 and correlat ed with chest CT dated 09/20/2020. A 3-lead cardiac AICD is unchanged in position and partially obscur es the left mid chest. The heart is enlarged noting atherosclerotic calcification of the thoracic aor ta. The pulmonary vasculature is noncongested. Changes of chronic interstitial lung disease are simil ar to previous. There is no evidence of superimposed airspace consolidation or pleural effusion. No p neumothorax is seen. The skeletal structures are osteopenic. The bony thorax is grossly intact. IMPRESSION: 1. Cardiomegaly and AICD. There is no radiographic evidence of congestive failure. 2. Changes of chronic interstitial lung disease are similar to previous. 3. There is no evidence of superimposed airspace consolidation or large pleural effusion. ACT 112: Negative or not required by law. Electronically signed by: Duke Ryan M.D. 09/24/2020 9:10 AM
[2020-09-24] MEDS: DOCUSATE SODIUM 100 MG CAP PO SCH (14:13)
[2020-09-24] MEDS: ATORVASTATIN 40 MG TAB PO SCH (19:26)
[2020-09-25] MEDS: ALBUT/IPRATROP 3MG/0.5MG NEB 3 ML VIAL NEB SCH ×6 (03:01→23:37)
[2020-09-25 04:50] LABS: Basophils # (auto) 0.01 K/uL (0-0.2); Basophils % (auto) 0.1 %; Eosinophils # (auto) 0.13 K/uL (0-0.5); Eosinophils % (auto) 1.4 %; Hematocrit (blood only) 35.2 % (42-52); Immature Granulocytes # (auto) 0.03 K/uL (0.00-0.02); Immature Granulocytes % (auto) 0.3 %; Lymphocytes # (auto) 0.34 K/uL (1.2-3.4); Lymphocytes % (auto) 3.6 %; Mean Corpuscular Hemoglobin 34.2 pg (25-34); Mean Corpuscular Hgb Conc 36.9 g/dL (32-36); Mean Corpuscular Volume 92.6 fL (80-100); Monocytes # (auto) 0.26 K/uL (0.11-0.59); Monocytes % (auto) 2.8 %; Neutrophils # (auto) 8.65 K/uL (1.4-6.5); Neutrophils % (auto) 91.8 %; Platelet Count 493 K/uL (130-400); RDW Coefficient of Variation 14.3 % (11.5-14.5); RDW Standard Deviation 47.6 fL (36.4-46.3); White Blood Count 9.42 K/uL (4.8-10.8)
[2020-09-25 05:17] LABS: Calcium 8.5 mg/dl (8.5-10.1); Creatinine Clr Calc Pharmacy 63.5 ml/min; Est GFR (African American) 69.8 ml/min; Est GFR (Non-African American) 60.2 ml/min; Magnesium 2.8 mg/dl (1.8-2.4); Phosphorus 3.4 mg/dl (2.5-4.9)
[2020-09-25] MEDS ORDERED: POTASSIUM CHLORIDE CRTAB 20 MEQ TABCR PO STA (07:43)
--- NOTE | 2020-09-25 07:44 | Critical Care Progress Note ---
Date of Service September 25, 2020 Assessment & Plan (1) Acute respiratory failure with hypoxia: Plan: Reason Critically Ill: Acute hypoxic respiratory failure secondary to COVID-19 pneumonia PLAN: Resp: Acute respiratory distress syndrome secondary to COVID-19: -Continue steroids -Consents to Tocilizumab, administered 09/21 and second dose on 09/22 -Continue bronchodilators -Consideration given to intubation mechanical ventilation Rheumatoid arthritis -On tofacitinib -Continue to hold CV: Hypertension -Continue Coreg 12.5 twice daily Hyperlipidemia -Lipitor 40 mg Fluids/Renal: Mild hyponatremia: -20 mg Lasix today IV -Adding electrolyte protocol ID: COVID-19 pneumonia -Steroids (6 mg) and Tocilizumab: Received 2 doses GI/Nutrition: Heart healthy diet -Adding bowel regimen for increasing BUN Heme: Mild anemia at baseline DVT prophylaxis: Lovenox 40 mg twice daily Endocrine: ICU hyperglycemia protocol Vascular access: Peripheral IVs Code Status: DNR in event of cardiac arrest -Patient agreeable to intubation in event of respiratory insufficiency -Patient does not feel he would desire tracheostomy in event prolonged intubation Disposition: ICU (2) Hyponatremia: (3) Pneumonia due to COVID-19 virus: (4) ILD (interstitial lung disease): Admission and Anticipated Discharge Date Admission Date: September 20, 2020 Supervising Physician Co-Signing Physician Notes Patient was discussed with bedside nursing I have personally spent 35 minutes of critical care time in the direct management of this patient. This is a life/limb threatening event. This includes time spent evaluating patient, direct bedside care, chart review, placing orders, interpretation of diagnostic studies, discussion with consultants, patient, and/or family members regarding treatment decisions, as well as other required patient management activities. This time is exclusive of all separately billable procedures, and teaching time and separate from and in addition to any other critical care service time. Subjective No overnight events was able to tolerate high flow nasal cannula overnight and d id not require use of CPAP Physical Exam Physical Exam: General: Alert. nontoxic. Skin: Warm, dry, Head: Atraumatic Ears, nose, mouth and throat: airway patent Cardiovascular: Normal peripheral perfusion Respiratory: Mild tachypnea Gastrointestinal: Non distended Musculoskeletal: No deformity Results & Data Results & Data ([facility]) Vital Signs (Past 12 Hours) Vital Signs Temp Pulse Pulse Resp BP Pulse Ox 09/25/20 05:52 64 24 104/68 94 09/25/20 05:22 36.7 C 74 15 88/58 L 85 L 09/25/20 04:52 73 23 122/88 85 L 09/25/20 04:48 67 22 85 L 09/25/20 04:22 36.7 C 79 23 113/74 80 L 09/25/20 03:52 75 27 H 92/56 L 81 L 09/25/20 03:22 73 30 H 102/63 86 L 09/25/20 02:59 64 18 100 09/25/20 02:52 62 21 91/52 L 89 L 09/25/20 02:22 36.7 C 63 12 81/52 L 87 L 09/25/20 01:51 61 25 H 105/63 90 09/25/20 01:22 71 26 H 100/61 87 L 09/25/20 00:52 65 30 H 113/56 L 89 L 09/25/20 00:21 36.7 C 69 26 H 103/55 L 92 09/24/20 23:52 62 27 H 100/60 90 09/24/20 23:31 87 20 88 L 09/24/20 23:21 73 21 109/65 86 L 09/24/20 22:52 68 31 H 100/64 90 09/24/20 22:22 67 24 103/70 91 09/24/20 21:51 65 23 119/67 91 09/24/20 21:21 71 24 111/64 90 09/24/20 20:51 76 27 H 116/81 92 09/24/20 20:22 36.8 C 81 22 123/71 91 09/24/20 20:18 67 20 91 09/24/20 19:52 72 24 105/74 88 L Laboratory Results 09/25/20 09/25/20 09/24/20 Range/Units 04:13 04:13 04:32 WBC 9.42 (4.8-10.8) K/uL RBC 3.80 L (4.7-6.1) M/uL Hgb 13.0 L (14.0-18.0) g/dL Hct 35.2 L (42-52) % MCV 92.6 (80-100) fL MCH 34.2 H (25-34) pg MCHC 36.9 H (32-36) g/dL RDW Std Deviation 47.6 H (36.4-46.3) fL RDW Coeff of Thomas 14.3 (11.5-14.5) % Plt Count 493 H (130-400) K/uL MPV 9.0 (7.4-10.4) fL Immature Gran % (Auto) 0.3 % Neut % (Auto) 91.8 % Lymph % (Auto) 3.6 % Guadalupe % (Auto) 2.8 % Eos % (Auto) 1.4 % Baso % (Auto) 0.1 % Neut # (Auto) 8.65 H (1.4-6.5) K/uL Lymph # (Auto) 0.34 L (1.2-3.4) K/uL Guadalupe # (Auto) 0.26 (0.11-0.59) K/uL Eos # (Auto) 0.13 (0-0.5) K/uL Baso # (Auto) 0.01 (0-0.2) K/uL Immature Gran # (Auto) 0.03 H (0.00-0.02) K/uL Sodium 133 L (136-145) mmol/L Potassium 4.0 (3.5-5.1) mmol/L Chloride 100 (98-107) mmol/L Carbon Dioxide 25 (21-32) mmol/L Anion Gap 8.0 (3-11) BUN 64 H (7-18) mg/dl Creatinine 1.13 (0.6-1.4) mg/dl Est Cr Clr Drug Dosing 63.5 ml/min Est GFR ( Amer) 69.8 ml/min Est GFR (Non-Af Amer) 60.2 ml/min BUN/Creatinine Ratio 57.0 H (10-20) Glucose 95 (70-99) mg/dl Calcium 8.5 (8.5-10.1) mg/dl Phosphorus 3.4 (2.5-4.9) mg/dl Magnesium 2.8 H (1.8-2.4) mg/dl C-Reactive Protein 3.86 H (0-0.29) mg/dl Coding Level of Care Code Critical Care 1st 30-74 mins Diagnoses Acute respiratory failure with hypoxia J96.01 Hyponatremia E87.1 Pneumonia due to COVID-19 virus U07.1; J12.82 ILD (interstitial lung disease) J84.9
[2020-09-25] MEDS: ENOXAPARIN INJ 40 MG/0.4 ML SYR SQ SCH ×2 (07:50→20:13)
[2020-09-25] MEDS: ZINC SULFATE 220 MG CAPSULE PO SCH ×2 (07:51→20:14)
[2020-09-25] MEDS: ASPIRIN 81 MG ECTAB PO SCH (07:51)
[2020-09-25] MEDS: PANTOprazole 40 MG TAB PO SCH (07:51)
[2020-09-25] MEDS: CHOLECALCIFEROL 1,000 UNITS 25 MCG TAB PO SCH (07:51)
[2020-09-25] MEDS: carvediloL 12.5 MG TAB PO SCH ×2 (07:51→20:14)
[2020-09-25] MEDS: ERGOCALCIFEROL 50,000 UNITS 1250 MCG CAP PO SCH (07:52)
[2020-09-25] MEDS: ASCORBIC ACID 500 MG TAB PO SCH (07:52)
[2020-09-25] MEDS ORDERED: FUROSEMIDE 20 MG in SYRINGE 0 ML IV ONE (08:00)
[2020-09-25] MEDS: dexAMETHasone 6 MG in SYRINGE 0 ML IV SCH (09:36)
[2020-09-25] MEDS: DOCUSATE SODIUM/SENNA 50/8.6MG TAB PO SCH (09:37)
[2020-09-25] MEDS: DOCUSATE SODIUM 100 MG CAP PO SCH (09:37)
[2020-09-25] MEDS: PSYLLIUM 58.6% POWDER PACKET PO SCH (09:37)
--- NOTE | 2020-09-25 16:09 | Hospitalist Progress Note ---
Date of Service September 25, 2020 Assessment & Plan (1) Acute respiratory failure with hypoxia: Plan: 2nd COVID-19 pneumonia in setting of a baseline ILD (rheumatoid lung?). Patient with rapidly declining pulmonary status shortly after admission necessitating transfer to ICU. Cont HFNC, improving O2 requirement Willl defer ongoing diuretics to ICU management - continues with small negative balance Treating Covid as below Continue dexamethasone 6 mg IV every 24 hours, CRP decreasing DuoNebs scheduled (2) Pneumonia due to COVID-19 virus: Plan: First symptoms on 09/11/2020. Not vaccinated due to patient choice. Had been taking dexamethasone at [facility] prior to admission. With acute respiratory failure with hypoxia requiring high flow nasal cannula as above Cont dexamethasone Too late in the illness course for remdesivir. -Has received tocilizumab (meets criteria with elevated CRP, rapid increase in FiO2 requirements, <72 hrs into his hospitalization, etc) by the ICU team. Antibiotics for bacterial pneumonia were discontinued as procalcitonin negative Follow chest [id number] improvement on 09/23 continue intermittent Prone positioning (3) ILD (interstitial lung disease): Plan: Appears to have a baseline ILD. Rheumatoid lung? (has had RA for 40+ years). (4) Hypertension: Plan: Controlled. Continue coreg. (5) Coronary arteriosclerosis: Plan: Continue home aspirin, beta-cass, and statin. No evidence of ischemia. (6) Rheumatoid arthritis: Plan: Typically takes tofacitinib. This will be held especially since tocilizumab will be employed. (7) Hyperlipemia: Plan: Continue lipitor. (8) Esophagitis: Plan: as seen on CTA chest. Continue PPI Plan: VTE prophyalxis - Lovenox 40 mg BID Disposition-continued stay in the ICU Admission and Anticipated Discharge Date Admission Date: September 20, 2020 Subjective Patient was seen outside ICU room to limit exposure during current pandemic as care performed by ICU team. Physical Exam Constitutional: no acute distress Respiratory: no respiratory distress Results & Data Results & Data ([facility]) Vital Signs (Past 12 Hours) Vital Signs Temp Pulse Pulse Resp BP Pulse Ox 09/25/20 15:36 78 26 H 93 09/25/20 15:35 78 26 H 93 09/25/20 14:21 73 24 117/82 94 09/25/20 13:22 78 17 96/57 L 93 09/25/20 12:21 77 14 89/56 L 95 09/25/20 11:22 36.7 C 72 13 101/66 96 09/25/20 11:14 74 20 95 09/25/20 11:12 74 20 95 09/25/20 10:21 88 18 101/69 93 09/25/20 09:21 75 26 H 99/64 L 93 09/25/20 08:22 36.6 C 16 111/75 92 09/25/20 08:20 67 24 92 09/25/20 08:15 67 24 94 09/25/20 07:22 62 24 105/62 93 09/25/20 05:52 64 24 104/68 94 09/25/20 05:22 36.7 C 74 15 88/58 L 85 L 09/25/20 04:52 73 23 122/88 85 L 09/25/20 04:48 67 22 85 L 09/25/20 04:22 36.7 C 79 23 113/74 80 L PG Care Time/CCT Total # of Minutes Spent Total Time Spent with Patient: Total time spent is greater than 50% in coordination of care (as documented) at patient's floor/unit and/or counseling patient: Coding Level of Care Code None Diagnoses Acute respiratory failure with hypoxia J96.01 Pneumonia due to COVID-19 virus U07.1; J12.82 ILD (interstitial lung disease) J84.9 Hypertension I10 Coronary arteriosclerosis I25.10 Rheumatoid arthritis M06.9 Hyperlipemia E78.5 Esophagitis K20.90
[2020-09-25] MEDS ORDERED: ICU PROTOCOL FOR HYPERGLYCEMIA PRN (17:19)
[2020-09-25] MEDS: ICU ELECTROLYTE REPLACEMENT PROTOCOL SCH (18:14)
[2020-09-25] MEDS: ATORVASTATIN 40 MG TAB PO SCH (20:14)
[2020-09-26] MEDS: ALBUT/IPRATROP 3MG/0.5MG NEB 3 ML VIAL NEB SCH ×5 (03:03→19:28)
[2020-09-26 05:06] LABS: Eosinophils # (auto) 0.14 K/uL (0-0.5); Eosinophils % (auto) 1.9 %; Hematocrit (blood only) 34.7 % (42-52); Hemoglobin 12.2 g/dL (14.0-18.0); Immature Granulocytes # (auto) 0.04 K/uL (0.00-0.02); Immature Granulocytes % (auto) 0.5 %; Lymphocytes # (auto) 0.63 K/uL (1.2-3.4); Lymphocytes % (auto) 8.4 %; Mean Corpuscular Hemoglobin 31.2 pg (25-34); Mean Corpuscular Hgb Conc 35.2 g/dL (32-36); Mean Corpuscular Volume 88.7 fL (80-100); Mean Platelet Volume 8.7 fL (7.4-10.4); Monocytes # (auto) 0.05 K/uL (0.11-0.59); Monocytes % (auto) 0.7 %; Neutrophils # (auto) 6.63 K/uL (1.4-6.5); Neutrophils % (auto) 88.5 %; Platelet Count 373 K/uL (130-400); RDW Coefficient of Variation 14.4 % (11.5-14.5); RDW Standard Deviation 46.2 fL (36.4-46.3); Red Blood Count 3.91 M/uL (4.7-6.1); White Blood Count 7.49 K/uL (4.8-10.8)
[2020-09-26 05:26] LABS: BUN Creatinine Ratio 55.8 (10-20); Calcium 8.3 mg/dl (8.5-10.1); Creatinine Clr Calc Pharmacy 69.7 ml/min; Est GFR (Non-African American) 67.3 ml/min; Magnesium 2.6 mg/dl (1.8-2.4); Phosphorus 3.2 mg/dl (2.5-4.9); Potassium 4.4 mmol/L (3.5-5.1)
[2020-09-26] MEDS: ICU ELECTROLYTE REPLACEMENT PROTOCOL SCH ×2 (06:14→17:01)
--- NOTE | 2020-09-26 08:07 | XRay Report ---
XR chest 1V portable HISTORY: 80 years-old Male Resp failure acute respiratory failure COMPARISON: Chest radiograph 09/24/2020 TECHNIQUE: Portable AP view of the chest FINDINGS: Cardiac silhouette is enlarged. Left subclavian pacer/AICD. Chronic interstitial lung disease redemon strated with left greater than right diffuse reticular opacities. No pneumothorax, large pleural effu grover or overt pulmonary edema. There is mildly improved aeration of the left lung. Healed chronic fra cture deformity of the right clavicle. Degenerative changes of the shoulders and spine. IMPRESSION: 1. Chronic interstitial lung disease with mildly improved aeration of the left lung. 2. Cardiomegaly without overt pulmonary edema. ACT 112: Negative or not required by law. The above report was generated using voice recognition software. It may contain grammatical, syntax o r spelling errors. Electronically signed by: Anthony Kaufman M.D. 09/26/2020 8:06 AM
[2020-09-26] MEDS: DOCUSATE SODIUM/SENNA 50/8.6MG TAB PO SCH (08:25)
[2020-09-26] MEDS: ASPIRIN 81 MG ECTAB PO SCH (08:25)
[2020-09-26] MEDS: carvediloL 12.5 MG TAB PO SCH ×2 (08:25→20:10)
[2020-09-26] MEDS: CHOLECALCIFEROL 1,000 UNITS 25 MCG TAB PO SCH (08:25)
[2020-09-26] MEDS: ASCORBIC ACID 500 MG TAB PO SCH (08:25)
[2020-09-26] MEDS: ENOXAPARIN INJ 40 MG/0.4 ML SYR SQ SCH ×2 (08:26→20:08)
[2020-09-26] MEDS: PANTOprazole 40 MG TAB PO SCH (08:26)
[2020-09-26] MEDS: ERGOCALCIFEROL 50,000 UNITS 1250 MCG CAP PO SCH (08:26)
[2020-09-26] MEDS: PSYLLIUM 58.6% POWDER PACKET PO SCH (08:26)
[2020-09-26] MEDS: ZINC SULFATE 220 MG CAPSULE PO SCH ×2 (08:26→20:09)
[2020-09-26] MEDS: DOCUSATE SODIUM 100 MG CAP PO SCH (08:27)
--- NOTE | 2020-09-26 10:37 | Critical Care Progress Note ---
Date of Service September 26, 2020 Assessment & Plan (1) Acute and chronic respiratory failure with hypoxia: (2) Pneumonia: (3) COVID-19: (4) Rheumatoid arthritis: (5) Pulmonary fibrosis: (6) ILD (interstitial lung disease): Plan: CT chest 09/20/2020 personally reviewed: Patient has interstitial thickening increased reticulation as well as honeycombing appreciated bilateral upper lobes as well as minimal in the left lower lobe Traction bronchiectasis also appreciated in the left lower lobe as well as the right lower lobe Groundglass opacities are appreciated peripherally No mediastinal lymphadenopathy --Acute hypoxic respiratory failure Multifactorial Underlying multi lobar COVID-19 pneumonia definitely playing a role Patient has most likely underlying lung disease which she was not diagnosed with --> looking at the CAT scan I think patient has ILD which could be NSIP pattern CRP 10.7 --> 11.6, procalcitonin 0.12 S/p Tocilizumab 09/21/20 second dose of Tocilizumab given on 729 Patient is out of the timeline for remdesivir Continue with dexamethasone Awake proning O2 supplementation to keep oxygen saturation 88-92% Continue with high flow and transition to CPAP/BiPAP if need be --ILD Is very difficult to say whether it is NSIP given the patient's BNP was 2335 and patient also has COVID-19 pneumonia which both of them can give groundglass opacities Patient also has rheumatoid arthritis which has been associated with ILD He is already on tofacitinib Technically patient would need a biopsy but I do not think given patient age and current condition that is a possibility He is already on steroids and will continue with the same dose --Rheumatoid arthritis On tofacitinib --Hypertension/dyslipidemia Continue with Coreg and atorvastatin --Overall prognosis is guarded --Prophylaxis VTE: Lovenox GI: Protonix Lines: Peripheral, positive Ascencio due to retention Diet: Cardiac Plan: In/out: Positive for 48, urine output 1452 Patient has -2.5 L since coming to the hospital Try to titrate down FiO2 to keep oxygen saturation greater than 88% Aggressive incentive spirometry Again had a discussion with patient regarding intubation and he said he would like to have with if there is a need. I did explain that given that he has been on oxygen for so long he would not do well if intubated. I have personally spent 35 minutes of critical care time in the direct management of this patient. This is a life/limb threatening event. This includes time spent evaluating patient, direct bedside care, chart review, placing orders, interpretation of diagnostic studies, discussion with consultants, patient, and family members, as well as other required patient management activities. This time is exclusive of all separately billable procedures, and teaching time and separate from and in addition to any other critical care service time. Please note the above document was generated using voice recognition software. It may contain grammatical, syntax or spelling errors. Admission and Anticipated Discharge Date Admission Date: September 20, 2020 Subjective Patient seen and examined at bedside. No acute distress, no adverse events overnight. Patient denies any chest pain, no dizziness, no headache, no blurry vision Patient said he seems that he is feeling better Denies any cough. He was on high flow 80%, 60 L saturating 93% at the time of examination Review of Systems Review of Systems: All systems reviewed & are unremarkable except as noted in Subjective Physical Exam Physical Exam: Constitutional: No acute distress HEENT: EOMI, PERRLA Respiratory system: Decreased air entry bilaterally, no wheeze, no rhonchi, positive crackles bilateral lower lobes CVS: S1-S2 positive, no murmurs or gallops Abdomen: Soft, nontender, nondistended, positive bowel sounds x4 Extremities: +2 pulses bilaterally radialis/ dorsalis pedis, no cyanosis, no edema Neuro: Awake alert oriented x3 Psych: Normal mood and affect G/U: Positive Ascencio Skin: no rashes, warm and dry Lymphatic: no cervical or axillary lymphadenopathy Results & Data Results & Data ([facility]) Vital Signs (Past 12 Hours) Vital Signs Temp Pulse Pulse Resp BP Pulse Ox 09/26/20 08:21 67 24 106/69 92 09/26/20 07:52 77 18 91 09/26/20 07:22 64 23 114/70 94 09/26/20 06:22 36.6 C 69 25 H 121/71 93 09/26/20 05:22 60 19 99/58 L 95 09/26/20 04:22 36.6 C 64 23 114/60 94 09/26/20 03:21 62 24 107/53 L 90 09/26/20 03:09 58 L 17 93 09/26/20 02:22 36.6 C 71 25 H 93/57 L 85 L 09/26/20 01:21 64 18 95/61 L 94 09/26/20 00:32 36.6 C 62 18 93/63 L 93 09/26/20 00:22 71 17 75/59 L 93 09/25/20 23:44 64 20 93 09/25/20 23:22 36.6 C 76 32 H 111/57 L 92 09/26/20 04:50 09/26/20 04:50 Coding Level of Care Code Critical Care 1st 30-74 mins Diagnoses Acute and chronic respiratory failure with hypoxia J96.21 Pneumonia J18.9 Laterality: left Lung location: lower lobe of lung Pneumonia type: due to unspecified organism COVID-19 U07.1 Rheumatoid arthritis M06.9 Pulmonary fibrosis J84.10 ILD (interstitial lung disease) J84.9 Time Spent (min) 35 (1) Pneumonia Laterality: left Lung location: lower lobe of lung Pneumonia type: due to unspecified organism Qualified Code(s): J18.9 - Pneumonia, unspecified organism
[2020-09-26] MEDS: dexAMETHasone 6 MG in SYRINGE 0 ML IV SCH (11:46)
--- NOTE | 2020-09-26 19:38 | Hospitalist Progress Note ---
Date of Service September 26, 2020 Assessment & Plan (1) Acute respiratory failure with hypoxia: Plan: 2nd COVID-19 pneumonia in setting of a baseline ILD (rheumatoid lung?). Patient with rapidly declining pulmonary status shortly after admission necessitating transfer to ICU. Cont HFNC, improving O2 requirement Willl defer ongoing diuretics to ICU management - continues with small negative balance Treating Covid as below Continue dexamethasone 6 mg IV every 24 hours, CRP decreasing DuoNebs scheduled (2) Pneumonia due to COVID-19 virus: Plan: First symptoms on 09/11/2020. Not vaccinated due to patient choice. Had been taking dexamethasone at [facility] prior to admission. With acute respiratory failure with hypoxia requiring high flow nasal cannula as above Cont dexamethasone -Has received tocilizumab (meets criteria with elevated CRP, rapid increase in FiO2 requirements, <72 hrs into his hospitalization, etc) by the ICU team. Antibiotics for bacterial pneumonia were discontinued as procalcitonin negative continue intermittent Prone positioning (3) ILD (interstitial lung disease): Plan: Appears to have a baseline ILD. Rheumatoid lung? (has had RA for 40+ years). (4) Hypertension: Plan: Controlled. Continue coreg. (5) Coronary arteriosclerosis: Plan: Continue home aspirin, beta-cass, and statin. No evidence of ischemia. (6) Rheumatoid arthritis: Plan: Typically takes tofacitinib. This will be held especially since tocilizumab will be employed. (7) Hyperlipemia: Plan: Continue lipitor. (8) Esophagitis: Plan: as seen on CTA chest. Continue PPI (9) Urinary retention: Plan: Ascencio catheter in place Plan: VTE prophyalxis - Lovenox 40 mg BID Disposition-continued stay in the ICU Admission and Anticipated Discharge Date Admission Date: September 20, 2020 Subjective Discussed care with RN. Chart reviewed. Patient seen from outside of the room due to limiting exposure due to pandemic and care performed by ICU team. Physical Exam Constitutional: WD/WN, vitals as above no acute distress Results & Data Results & Data ([facility]) Vital Signs (Past 12 Hours) Vital Signs Temp Pulse Pulse Resp BP Pulse Ox 09/26/20 19:35 66 16 86 L 09/26/20 17:22 72 21 104/74 87 L 09/26/20 16:22 66 17 108/61 90 09/26/20 15:47 71 18 90 09/26/20 15:22 68 23 108/70 91 09/26/20 14:22 68 20 117/64 91 09/26/20 13:21 70 22 96/57 L 89 L 09/26/20 12:00 36.6 C 75 24 91 09/26/20 11:21 68 23 107/55 L 91 09/26/20 11:18 73 18 90 09/26/20 10:22 65 23 92/62 L 93 09/26/20 09:23 74 22 90 09/26/20 08:21 67 24 106/69 92 09/26/20 07:52 77 18 91 PG Care Time/CCT Total # of Minutes Spent Total Time Spent with Patient: Total time spent is greater than 50% in coordination of care (as documented) at patient's floor/unit and/or counseling patient: Coding Level of Care Code None Diagnoses Acute respiratory failure with hypoxia J96.01 Pneumonia due to COVID-19 virus U07.1; J12.82 ILD (interstitial lung disease) J84.9 Hypertension I10 Coronary arteriosclerosis I25.10 Rheumatoid arthritis M06.9 Hyperlipemia E78.5 Esophagitis K20.90 Urinary retention R33.9
[2020-09-26] MEDS: ATORVASTATIN 40 MG TAB PO SCH (20:09)
[2020-09-27] MEDS: ALBUT/IPRATROP 3MG/0.5MG NEB 3 ML VIAL NEB SCH ×7 (00:03→22:36)
[2020-09-27 05:32] LABS: Basophils # (auto) 0.01 K/uL (0-0.2); Basophils % (auto) 0.2 %; Eosinophils # (auto) 0.11 K/uL (0-0.5); Eosinophils % (auto) 1.7 %; Hematocrit (blood only) 34.2 % (42-52); Immature Granulocytes # (auto) 0.01 K/uL (0.00-0.02); Immature Granulocytes % (auto) 0.2 %; Lymphocytes # (auto) 0.54 K/uL (1.2-3.4); Lymphocytes % (auto) 8.4 %; Mean Corpuscular Hemoglobin 31.8 pg (25-34); Mean Corpuscular Hgb Conc 35.1 g/dL (32-36); Mean Corpuscular Volume 90.7 fL (80-100); Mean Platelet Volume 8.8 fL (7.4-10.4); Monocytes # (auto) 0.14 K/uL (0.11-0.59); Monocytes % (auto) 2.2 %; Neutrophils # (auto) 5.64 K/uL (1.4-6.5); Neutrophils % (auto) 87.3 %; Platelet Count 373 K/uL (130-400); RDW Coefficient of Variation 14.5 % (11.5-14.5); RDW Standard Deviation 47.5 fL (36.4-46.3); Red Blood Count 3.77 M/uL (4.7-6.1); White Blood Count 6.45 K/uL (4.8-10.8)
[2020-09-27 05:59] LABS: BUN Creatinine Ratio 49.7 (10-20); Calcium 8.5 mg/dl (8.5-10.1); Creatinine Clr Calc Pharmacy 74.8 ml/min; Est GFR (Non-African American) 73.3 ml/min; Magnesium 2.4 mg/dl (1.8-2.4); Phosphorus 2.9 mg/dl (2.5-4.9); Potassium 4.2 mmol/L (3.5-5.1)
[2020-09-27] MEDS: ICU ELECTROLYTE REPLACEMENT PROTOCOL SCH ×2 (06:19→20:02)
[2020-09-27] MEDS: ASCORBIC ACID 500 MG TAB PO SCH (08:15)
[2020-09-27] MEDS: ASPIRIN 81 MG ECTAB PO SCH (08:15)
[2020-09-27] MEDS: DOCUSATE SODIUM/SENNA 50/8.6MG TAB PO SCH (08:16)
[2020-09-27] MEDS: carvediloL 12.5 MG TAB PO SCH ×2 (08:16→19:22)
[2020-09-27] MEDS: CHOLECALCIFEROL 1,000 UNITS 25 MCG TAB PO SCH (08:16)
[2020-09-27] MEDS: PANTOprazole 40 MG TAB PO SCH (08:17)
[2020-09-27] MEDS: ZINC SULFATE 220 MG CAPSULE PO SCH ×2 (08:17→19:23)
[2020-09-27] MEDS: ENOXAPARIN INJ 40 MG/0.4 ML SYR SQ SCH ×2 (08:17→19:21)
[2020-09-27] MEDS: PSYLLIUM 58.6% POWDER PACKET PO SCH (08:17)
[2020-09-27] MEDS: DOCUSATE SODIUM 100 MG CAP PO SCH (08:20)
--- NOTE | 2020-09-27 10:42 | Critical Care Progress Note ---
Date of Service September 27, 2020 Assessment & Plan (1) Acute and chronic respiratory failure with hypoxia: (2) Pneumonia: (3) COVID-19: (4) Rheumatoid arthritis: (5) Pulmonary fibrosis: (6) ILD (interstitial lung disease): Plan: CT chest 09/20/2020 personally reviewed: Patient has interstitial thickening increased reticulation as well as honeycombing appreciated bilateral upper lobes as well as minimal in the left lower lobe Traction bronchiectasis also appreciated in the left lower lobe as well as the right lower lobe Groundglass opacities are appreciated peripherally No mediastinal lymphadenopathy --Acute hypoxic respiratory failure Multifactorial Underlying multi lobar COVID-19 pneumonia definitely playing a role Patient has most likely underlying lung disease which she was not diagnosed with --> looking at the CAT scan I think patient has ILD which could be NSIP pattern CRP 10.7 --> 11.6, procalcitonin 0.12 S/p Tocilizumab 09/21/20 second dose of Tocilizumab given on 09/22 Patient is out of the timeline for remdesivir Continue with dexamethasone Awake proning O2 supplementation to keep oxygen saturation 88-92% Continue with high flow and transition to CPAP/BiPAP if need be --ILD Is very difficult to say whether it is NSIP given the patient's BNP was 2335 and patient also has COVID-19 pneumonia which both of them can give groundglass opacities Patient also has rheumatoid arthritis which has been associated with ILD He is already on tofacitinib Technically patient would need a biopsy but I do not think given patient age and current condition that is a possibility He is already on steroids and will continue with the same dose --Rheumatoid arthritis Resume tofacitinib --Hypertension/dyslipidemia Continue with Coreg and atorvastatin --Overall prognosis is guarded --Prophylaxis VTE: Lovenox GI: Protonix Lines: Peripheral, positive Ascencio due to retention Diet: Cardiac Plan: In/out: +550, urine output 600 mL Continue with incentive spirometry and flutter valve Patient starting to complain of stiffness in his joints. Resume tofacitinib Patient is still needing a lot of support from high flow but is not in any respiratory distress. Consideration to LTAC could be thought of. PT OT for the patient. Out of the bed to chair if possible I have personally spent 35 minutes of critical care time in the direct management of this patient. This is a life/limb threatening event. This includes time spent evaluating patient, direct bedside care, chart review, placing orders, interpretation of diagnostic studies, discussion with consultants, patient, and family members, as well as other required patient management activities. This time is exclusive of all separately billable procedures, and teaching time and separate from and in addition to any other critical care service time. Please note the above document was generated using voice recognition software. It may contain grammatical, syntax or spelling errors. Admission and Anticipated Discharge Date Admission Date: September 20, 2020 Subjective Patient seen and examined at bedside. No acute distress, no adverse events overnight. Patient was on 90% FiO2, 60 L saturating 89-90% Denies any chest pain, says that he is feeling better. No headache, no nausea, no vomiting Has been using incentive spirometry since today again. Going up to 1500. Review of Systems Review of Systems: All systems reviewed & are unremarkable except as noted in Subjective Physical Exam Physical Exam: Constitutional: No acute distress HEENT: EOMI, PERRLA Respiratory system: Decreased air entry bilaterally, no wheeze, no rhonchi, positive crackles bilateral lower lobes CVS: S1-S2 positive, no murmurs or gallops Abdomen: Soft, nontender, nondistended, positive bowel sounds x4 Extremities: +2 pulses bilaterally radialis/ dorsalis pedis, no cyanosis, no edema Neuro: Awake alert oriented x3 Psych: Normal mood and affect G/U: Positive Ascencio Skin: no rashes, warm and dry Lymphatic: no cervical or axillary lymphadenopathy Results & Data Results & Data ([facility]) Vital Signs (Past 12 Hours) Vital Signs Temp Pulse Pulse Resp BP Pulse Ox 09/27/20 09:22 71 18 93/63 L 92 09/27/20 08:22 82 37 H 127/72 78 L 09/27/20 07:47 80 18 88 L 09/27/20 07:22 68 25 H 127/85 85 L 09/27/20 06:22 64 15 149/79 H 94 09/27/20 05:22 36.7 C 73 29 H 121/72 88 L 09/27/20 04:21 70 23 119/71 92 09/27/20 03:54 68 18 93 09/27/20 03:22 67 25 H 119/66 93 09/27/20 02:22 75 20 119/71 90 09/27/20 01:01 77 23 120/71 95 09/27/20 00:22 81 20 85 L 09/27/20 00:10 73 19 89 L 09/26/20 23:21 36.8 C 79 22 101/71 89 L 09/26/20 23:19 74 09/27/20 05:00 09/27/20 05:00 Coding Level of Care Code Critical Care 1st 30-74 mins Diagnoses Acute and chronic respiratory failure with hypoxia J96.21 Pneumonia J18.9 Laterality: left Lung location: lower lobe of lung Pneumonia type: due to unspecified organism COVID-19 U07.1 Rheumatoid arthritis M06.9 Pulmonary fibrosis J84.10 ILD (interstitial lung disease) J84.9 Time Spent (min) 35 (1) Pneumonia Laterality: left Lung location: lower lobe of lung Pneumonia type: due to unspecified organism Qualified Code(s): J18.9 - Pneumonia, unspecified organism
[2020-09-27] MEDS: TOFACITINIB 11 MG PO SCH (11:30)
[2020-09-27] MEDS: dexAMETHasone 6 MG in SYRINGE 0 ML IV SCH (11:30)
[2020-09-27] MEDS: ATORVASTATIN 40 MG TAB PO SCH (19:22)
[2020-09-28] MEDS: ALBUT/IPRATROP 3MG/0.5MG NEB 3 ML VIAL NEB SCH ×4 (03:50→15:50)
[2020-09-28] MEDS ORDERED: LABETALOL HCL IV 5 MG/ML 20ML IV STA (04:34)
[2020-09-28 05:20] LABS: Basophils # (auto) 0.01 K/uL (0-0.2); Basophils % (auto) 0.1 %; Eosinophils # (auto) 0.19 K/uL (0-0.5); Eosinophils % (auto) 2.8 %; Hematocrit (blood only) 33.9 % (42-52); Hemoglobin 11.6 g/dL (14.0-18.0); Immature Granulocytes # (auto) 0.03 K/uL (0.00-0.02); Immature Granulocytes % (auto) 0.4 %; Lymphocytes # (auto) 0.53 K/uL (1.2-3.4); Lymphocytes % (auto) 7.9 %; Mean Corpuscular Hgb Conc 34.2 g/dL (32-36); Mean Corpuscular Volume 90.6 fL (80-100); Mean Platelet Volume 8.8 fL (7.4-10.4); Monocytes # (auto) 0.46 K/uL (0.11-0.59); Monocytes % (auto) 6.8 %; Neutrophils # (auto) 5.51 K/uL (1.4-6.5); Platelet Count 304 K/uL (130-400); RDW Coefficient of Variation 14.7 % (11.5-14.5); Red Blood Count 3.74 M/uL (4.7-6.1); White Blood Count 6.73 K/uL (4.8-10.8)
[2020-09-28 05:48] LABS: BUN Creatinine Ratio 41.8 (10-20); Calcium 8.3 mg/dl (8.5-10.1); Creatinine Clr Calc Pharmacy 80.6 ml/min; Est GFR (African American) 92.3 ml/min; Est GFR (Non-African American) 79.6 ml/min; Magnesium 2.5 mg/dl (1.8-2.4); Phosphorus 2.6 mg/dl (2.5-4.9); Potassium 4.2 mmol/L (3.5-5.1)
[2020-09-28] MEDS: ICU ELECTROLYTE REPLACEMENT PROTOCOL SCH (06:12)
--- NOTE | 2020-09-28 07:29 | Hospitalist Progress Note ---
Date of Service September 27, 2020 Assessment & Plan (1) Acute respiratory failure with hypoxia: Plan: 2nd COVID-19 pneumonia in setting of a baseline ILD (rheumatoid lung?). Patient with rapidly declining pulmonary status shortly after admission necessitating transfer to ICU. Cont HFNC, improving O2 requirement Will defer ongoing diuretics to ICU management DuoNebs scheduled (2) Pneumonia due to COVID-19 virus: Plan: First symptoms on 09/11/2020. Not vaccinated due to patient choice. Had been taking dexamethasone at [facility] prior to admission. Cont dexamethasone 6mg IV ddaily -Has received tocilizumab (meets criteria with elevated CRP, rapid increase in FiO2 requirements, <72 hrs into his hospitalization, etc) by the ICU team. Antibiotics for bacterial pneumonia were discontinued as procalcitonin negative continue intermittent Prone positioning (3) ILD (interstitial lung disease): Plan: Appears to have a baseline ILD. Rheumatoid lung? (has had RA for 40+ years). (4) Hypertension: Plan: Controlled. Continue coreg. (5) Coronary arteriosclerosis: Plan: Continue home aspirin, beta-cass, and statin. No evidence of ischemia. (6) Rheumatoid arthritis: Plan: Typically takes tofacitinib. This will be held especially since tocilizumab will be employed. (7) Hyperlipemia: Plan: Continue lipitor. (8) Esophagitis: Plan: as seen on CTA chest. Continue PPI (9) Urinary retention: Plan: Ascencio catheter in place Plan: VTE prophyalxis - Lovenox 40 mg BID Disposition-continued stay in the ICU Admission and Anticipated Discharge Date Admission Date: September 20, 2020 Subjective Reviewed patient chart, discussed with ICU team and patient seen through glass window but limiting exposure due to current pandemic and care mainly performed by ICU team. Physical Exam Constitutional: WD/WN, vitals as above Respiratory: normal respiratory effort and able to speak in complete sentences Results & Data Results & Data ([facility]) Vital Signs (Past 12 Hours) Vital Signs Temp Pulse Pulse Resp BP Pulse Ox 09/28/20 05:21 69 30 H 116/63 90 09/28/20 04:28 76 20 92 09/28/20 04:21 73 22 92/64 L 93 09/28/20 03:21 70 20 113/65 92 09/28/20 02:22 84 32 H 120/62 91 09/28/20 01:21 81 22 128/75 93 09/28/20 00:21 77 17 114/69 92 09/28/20 00:01 37 C 09/27/20 23:21 81 17 115/65 91 09/27/20 22:50 94 H 18 90 09/27/20 22:22 93 H 24 111/69 88 L 09/27/20 21:21 81 19 120/70 93 09/27/20 20:22 87 27 H 118/73 90 09/27/20 19:49 97 H 22 92 PG Care Time/CCT Total # of Minutes Spent Total Time Spent with Patient: Total time spent is greater than 50% in coordination of care (as documented) at patient's floor/unit and/or counseling patient: Coding Level of Care Code None Diagnoses Acute respiratory failure with hypoxia J96.01 Pneumonia due to COVID-19 virus U07.1; J12.82 ILD (interstitial lung disease) J84.9 Hypertension I10 Coronary arteriosclerosis I25.10 Rheumatoid arthritis M06.9 Hyperlipemia E78.5 Esophagitis K20.90 Urinary retention R33.9
[2020-09-28] MEDS: PANTOprazole 40 MG TAB PO SCH (08:10)
[2020-09-28] MEDS: ASCORBIC ACID 500 MG TAB PO SCH (08:10)
[2020-09-28] MEDS: ASPIRIN 81 MG ECTAB PO SCH (08:10)
[2020-09-28] MEDS: DOCUSATE SODIUM/SENNA 50/8.6MG TAB PO SCH (08:10)
[2020-09-28] MEDS: dexAMETHasone 6 MG in SYRINGE 0 ML IV SCH (08:10)
[2020-09-28] MEDS: PSYLLIUM 58.6% POWDER PACKET PO SCH (08:11)
[2020-09-28] MEDS: ZINC SULFATE 220 MG CAPSULE PO SCH ×2 (08:11→20:32)
[2020-09-28] MEDS: carvediloL 12.5 MG TAB PO SCH ×2 (08:11→20:32)
[2020-09-28] MEDS: CHOLECALCIFEROL 1,000 UNITS 25 MCG TAB PO SCH (08:11)
[2020-09-28] MEDS: DOCUSATE SODIUM 100 MG CAP PO SCH (08:13)
[2020-09-28] MEDS: ENOXAPARIN INJ 40 MG/0.4 ML SYR SQ SCH ×2 (08:17→20:31)
[2020-09-28] MEDS: TOFACITINIB 11 MG PO SCH (08:18)
--- NOTE | 2020-09-28 10:06 | Hospitalist Progress Note ---
Date of Service September 28, 2020 Assessment & Plan (1) Acute respiratory failure with hypoxia: Plan: 2nd COVID-19 pneumonia in setting of a baseline ILD (rheumatoid lung?). Patient with rapidly declining pulmonary status shortly after admission necessitating transfer to ICU, stable with high O2 requirement for a number of days at this point. Stable for step down to PCU. Cont HFNC, Aim O2 > 90%, continue to wean as able. Duonebs switch to PRN (2) Pneumonia due to COVID-19 virus: Plan: First symptoms on 09/11/2020. Not vaccinated due to patient choice. Had been taking dexamethasone at [facility] prior to admission. Cont dexamethasone 6mg IV ddaily -Has received tocilizumab (meets criteria with elevated CRP, rapid increase in FiO2 requirements, <72 hrs into his hospitalization, etc) by the ICU team. Antibiotics for bacterial pneumonia were discontinued as procalcitonin negative continue intermittent Prone positioning (3) ILD (interstitial lung disease): Plan: Appears to have a baseline ILD. Rheumatoid lung? (has had RA for 40+ years). (4) Hypertension: Plan: Controlled. Continue coreg. (5) Coronary arteriosclerosis: Plan: Continue home aspirin, beta-cass, and statin. No evidence of ischemia. (6) Rheumatoid arthritis: Plan: Typically takes tofacitinib. This will be held especially since tocilizumab will be employed. (7) Hyperlipemia: Plan: Continue lipitor. (8) Esophagitis: Plan: as seen on CTA chest. Continue PPI (9) Urinary retention: Plan: Pedroza catheter in place Plan: VTE prophyalxis - Lovenox 40 mg BID Disposition-stable for transfer to PCU Admission and Anticipated Discharge Date Admission Date: September 20, 2020 Subjective No significant change overnight. Fi O2 on 90%. Speaks in short sentences. No fever or chills. Good urine output with pedroza catheter. Review of Systems Review of Systems: All systems reviewed & are unremarkable except as noted in HPI & below Physical Exam Constitutional: WD/WN, vitals as above no acute distress Eyes: + anicteric sclerae; normal pupil size ENMT: Mouth: oral mucous membranes not dry Respiratory: normal respiratory effort and able to speak in complete sentences; no respiratory distress, no cough and not tachypneic Auscultation: + diminished lung sounds (throughout) Cardiovascular: Rate/Rhythm: regular rate and regular rhythm Heart Sounds: no murmur Extremities: no calf tenderness and no pedal edema Gastrointestinal (Abdomen): Inspection/Auscultation: normal bowel sounds Percussion/Palpation: abdomen soft; abdomen nontender Skin: no rashes, warm and dry Neurologic: moves all extremities and awake; not confused Psychiatric: A+Ox3, euthymic affect Results & Data Results & Data ([facility]) Vital Signs (Past 12 Hours) Vital Signs Temp Pulse Pulse Resp BP Pulse Ox 09/28/20 08:56 37.2 C 09/28/20 08:21 73 21 117/76 95 09/28/20 08:15 94 H 16 88 L 09/28/20 07:22 82 23 112/72 84 L 09/28/20 06:21 70 23 134/70 92 09/28/20 05:21 69 30 H 116/63 90 09/28/20 04:28 76 20 92 09/28/20 04:21 73 22 92/64 L 93 09/28/20 03:21 70 20 113/65 92 09/28/20 02:22 84 32 H 120/62 91 09/28/20 01:21 81 22 128/75 93 09/28/20 00:21 77 17 114/69 92 09/28/20 00:01 37 C 09/27/20 23:21 81 17 115/65 91 09/27/20 22:50 94 H 18 90 09/27/20 22:22 93 H 24 111/69 88 L PG Care Time/CCT Total # of Minutes Spent Total Time Spent with Patient: Total time spent is greater than 50% in coordination of care (as documented) at patient's floor/unit and/or counseling patient: Coding Level of Care Code 78135 Subseq Hosp Care Lvl 3 Diagnoses Acute respiratory failure with hypoxia J96.01 Pneumonia due to COVID-19 virus U07.1; J12.82 ILD (interstitial lung disease) J84.9 Hypertension I10 Coronary arteriosclerosis I25.10 Rheumatoid arthritis M06.9 Hyperlipemia E78.5 Esophagitis K20.90 Urinary retention R33.9
--- NOTE | 2020-09-28 12:21 | Pulmonology Progress Note ---
Date of Service September 28, 2020 Assessment & Plan (1) Acute and chronic respiratory failure with hypoxia: (2) Pneumonia: Laterality: left Lung location: lower lobe of lung Pneumonia type: due to unspecified organism Qualified Code(s): J18.9 - Pneumonia, unspecified organism (3) COVID-19: (4) Rheumatoid arthritis: (5) Pulmonary fibrosis: (6) ILD (interstitial lung disease): Plan: CT chest 09/20/2020 personally reviewed: Patient has interstitial thickening increased reticulation as well as honeycombing appreciated bilateral upper lobes as well as minimal in the left lower lobe Traction bronchiectasis also appreciated in the left lower lobe as well as the right lower lobe Groundglass opacities are appreciated peripherally No mediastinal lymphadenopathy --Acute hypoxic respiratory failure Multifactorial Underlying multi lobar COVID-19 pneumonia definitely playing a role Patient has most likely underlying lung disease which she was not diagnosed with --> looking at the CAT scan I think patient has ILD which could be NSIP pattern CRP 10.7 --> 11.6, procalcitonin 0.12 S/p Tocilizumab 09/21/20 second dose of Tocilizumab given on 09/22 Patient is out of the timeline for remdesivir Continue with dexamethasone Awake proning O2 supplementation to keep oxygen saturation 88-92% Continue with high flow and transition to CPAP/BiPAP if need be --ILD Is very difficult to say whether it is NSIP given the patient's BNP was 2335 and patient also has COVID-19 pneumonia which both of them can give groundglass opacities Patient also has rheumatoid arthritis which has been associated with ILD He is already on tofacitinib Technically patient would need a biopsy but I do not think given patient age and current condition that is a possibility He is already on steroids and will continue with the same dose --Rheumatoid arthritis Resume tofacitinib --Hypertension/dyslipidemia Continue with Coreg and atorvastatin --Overall prognosis is guarded --Prophylaxis VTE: Lovenox GI: Protonix Lines: Peripheral, positive Ascencio due to retention Diet: Cardiac Plan: In/out: -1030, urine output 1150 Continue with incentive spirometry and flutter valve Tofacitinib on hold for at least 14 days since last Tocilizumab dose as it has been found to cause significant immunosuppressant when used with tocilizumab. I again had discussion regarding intubation with the patient. He concluded that he would like to continue the current care and would not like to be intubated in future even if need be. We will downgrade the patient to a telemetry floor. Complete 10 days of dexamethasone. LTAC placement should be thought of. Pulmonary will follow peripherally. Call directly with any questions. Please note the above document was generated using voice recognition software. It may contain grammatical, syntax or spelling errors.Any formal questions or concerns about the content, text or information contained within the body of this dictation should be directly addressed to the provider for clarification. Admission and Anticipated Discharge Date Admission Date: September 20, 2020 Subjective Patient seen and examined at bedside. No acute distress, no adverse events overnight Patient still needs high oxygen support. Time of examination he was under 90%, 60 L saturating 91% He denied any chest pain, he has been using incentive spirometry Overall he is in positive mood. Has been afebrile. Urinating well with the Ascencio. Review of Systems Review of Systems: All systems reviewed & are unremarkable except as noted in Subjective Physical Exam Physical Exam: Constitutional: No acute distress HEENT: EOMI, PERRLA Respiratory system: Decreased air entry bilaterally, no wheeze, no rhonchi, positive crackles bilateral lower lobes CVS: S1-S2 positive, no murmurs or gallops Abdomen: Soft, nontender, nondistended, positive bowel sounds x4 Extremities: +2 pulses bilaterally radialis/ dorsalis pedis, no cyanosis, no ed shahana Neuro: Awake alert oriented x3 Psych: Normal mood and affect G/U: Positive Ascencio Skin: no rashes, warm and dry Lymphatic: no cervical or axillary lymphadenopathy Results & Data Results & Data ([facility]) Vital Signs (Past 12 Hours) Vital Signs Temp Pulse Pulse Resp BP Pulse Ox 09/28/20 10:38 73 18 90 09/28/20 08:56 37.2 C 09/28/20 08:21 73 21 117/76 95 09/28/20 08:15 94 H 16 88 L 09/28/20 07:22 82 23 112/72 84 L 09/28/20 06:21 70 23 134/70 92 09/28/20 05:21 69 30 H 116/63 90 09/28/20 04:28 76 20 92 09/28/20 04:21 73 22 92/64 L 93 09/28/20 03:21 70 20 113/65 92 09/28/20 02:22 84 32 H 120/62 91 09/28/20 01:21 81 22 128/75 93 09/28/20 00:21 77 17 114/69 92 09/28/20 05:08 09/28/20 05:08 PG Care Time/CCT Total # of Minutes Spent Total Time Spent with Patient: Total time spent is greater than 50% in coordination of care (as documented) at patient's floor/unit and/or counseling patient: Coding Level of Care Code 17815 Subseq Hosp Care Lvl 3 Diagnoses Acute and chronic respiratory failure with hypoxia J96.21 Pneumonia J18.9 Laterality: left Lung location: lower lobe of lung Pneumonia type: due to unspecified organism COVID-19 U07.1 Rheumatoid arthritis M06.9 Pulmonary fibrosis J84.10 ILD (interstitial lung disease) J84.9
[2020-09-28] MEDS ORDERED: ALBUT/IPRATROP 3MG/0.5MG NEB 3 ML VIAL NEB PRN (17:30)
[2020-09-28] MEDS: ATORVASTATIN 40 MG TAB PO SCH (20:32)
[2020-09-29 07:02] LABS: BUN Creatinine Ratio 39.7 (10-20); Calcium 8.4 mg/dl (8.5-10.1); Creatinine Clr Calc Pharmacy 83.5 ml/min; Est GFR (African American) 93.6 ml/min; Est GFR (Non-African American) 80.8 ml/min; Magnesium 2.4 mg/dl (1.8-2.4); Phosphorus 2.1 mg/dl (2.5-4.9); Potassium 3.8 mmol/L (3.5-5.1)
[2020-09-29] MEDS: dexAMETHasone 6 MG in SYRINGE 0 ML IV SCH (08:20)
[2020-09-29] MEDS: CHOLECALCIFEROL 1,000 UNITS 25 MCG TAB PO SCH (08:21)
[2020-09-29] MEDS: DOCUSATE SODIUM 100 MG CAP PO SCH (08:21)
[2020-09-29] MEDS: carvediloL 12.5 MG TAB PO SCH (08:21)
[2020-09-29] MEDS: PANTOprazole 40 MG TAB PO SCH (08:21)
[2020-09-29] MEDS: ASCORBIC ACID 500 MG TAB PO SCH (08:21)
[2020-09-29] MEDS: ASPIRIN 81 MG ECTAB PO SCH (08:21)
[2020-09-29] MEDS: DOCUSATE SODIUM/SENNA 50/8.6MG TAB PO SCH (08:21)
[2020-09-29] MEDS: ZINC SULFATE 220 MG CAPSULE PO SCH (08:21)
[2020-09-29] MEDS: PSYLLIUM 58.6% POWDER PACKET PO SCH (08:22)
[2020-09-29] MEDS: ENOXAPARIN INJ 40 MG/0.4 ML SYR SQ SCH ×2 (08:22→10:27)
[2020-09-29 09:55] LABS: Appearance Urine Cloudy (Clear); Blood Urine 3+ (Negative); Color Urine Orange; Epithelial Cell Urine Auto >30 /lpf (0-5); Glucose Urine UA Negative (Negative); Ketones Urine Negative (Negative); Leukocyte Esterase Urine 1+ (Negative); Nitrite Urine Negative (Negative); Protein Urine 2+ (Negative); RBC Urine Automated >30 /hpf (0-4); Specific Gravity Urine 1.032 (1.000-1.030); Urobilinogen Urine Negative (Negative); pH Urine 5.5 (4.5-7.5)
[2020-09-29 09:56] LABS: Bilirubin Urine 1+ (Negative)
[2020-09-29 10:15] LABS: Bacteria Urine Automated 1+ (Negative); Calcium Oxalate Crystals Urine Present (None Prsent)
--- NOTE | 2020-09-29 16:01 | Hospitalist Progress Note ---
Date of Service September 29, 2020 Assessment & Plan (1) Acute respiratory failure with hypoxia: Plan: 2nd COVID-19 pneumonia in setting of a baseline ILD (rheumatoid lung?). Patient with rapidly declining pulmonary status shortly after admission necessitating transfer to ICU. Trasnferred back to PCU yesterday as stable FiO2 90-100% on HFNC Worsening hypoxia throughout today. Discussed case with Dr Lamb. CXR, CBC, CRP, Procalcitonin. (2) Acute tubular necrosis: Plan: Urine analysis and changes throughout the day consistent with ATN. Cr/BUN stable. Poor prognostic sign. (3) Pneumonia due to COVID-19 virus: Plan: First symptoms on 09/11/2020. Not vaccinated due to patient choice. Had been taking dexamethasone at [facility] prior to admission. Cont dexamethasone 6mg IV daily -Has received tocilizumab (meets criteria with elevated CRP, rapid increase in FiO2 requirements, <72 hrs into his hospitalization, etc) by the ICU team. Antibiotics for bacterial pneumonia were discontinued as procalcitonin negative continue intermittent Prone positioning (4) ILD (interstitial lung disease): Plan: Appears to have a baseline ILD. Rheumatoid lung? (has had RA for 40+ years). (5) Hypertension: Plan: Controlled. Continue coreg. (6) Coronary arteriosclerosis: Plan: Continue home aspirin, beta-cass, and statin. No evidence of ischemia. (7) Rheumatoid arthritis: Plan: Typically takes tofacitinib. This will be held especially since tocilizumab will be employed. (8) Hyperlipemia: Plan: Continue lipitor. (9) Esophagitis: Plan: as seen on CTA chest. Continue PPI (10) Urinary retention: Plan: Ascencio catheter in place Plan: VTE prophyalxis - Lovenox 40 mg BID Disposition- PCU Admission and Anticipated Discharge Date Admission Date: September 20, 2020 Subjective Urine output 15ml/hr. Worse hypoxia today and getting more confused. Improves on BiPAP and proning but having a lot of difficulty while doing this. Review of Systems Review of Systems: Unobtainable due to cognitive status Physical Exam Constitutional: + acute distress (respiratory); + not well nourished ENMT: Mouth: + dry oral mucous membranes Respiratory: normal respiratory effort, + respiratory distress, + retractions, + uses accessory muscles and + tachypneic; no cough and + not able to speak in complete sentence Auscultation: + diminished lung sounds (throughout) Cardiovascular: Rate/Rhythm: regular rate and regular rhythm Heart Sounds: no murmur Extremities: no calf tenderness and no pedal edema Gastrointestinal (Abdomen): Inspection/Auscultation: normal bowel sounds Percussion/Palpation: abdomen soft; abdomen nontender Neurologic: moves all extremities, awake and + confused Psychiatric: Orientation: alert, oriented to person and oriented to place; + not oriented to time Results & Data Results & Data ([facility]) Vital Signs (Past 12 Hours) Vital Signs Temp Pulse Pulse Resp BP BP Pulse Ox 09/29/20 15:15 69 44 H 81 L 09/29/20 14:52 69 09/29/20 12:28 09/29/20 12:20 91 H 42 H 80 L 09/29/20 11:28 36.8 C 82 24 93/57 L 79 L 09/29/20 10:58 78 19 89 L 09/29/20 08:00 37.2 C 72 96 H 26 H 125/70 85 L 09/29/20 07:11 82 18 86 L 09/29/20 04:49 36.8 C 75 20 125/64 82 L Pulse Ox 09/29/20 15:15 09/29/20 14:52 09/29/20 12:28 82 L 09/29/20 12:20 09/29/20 11:28 09/29/20 10:58 09/29/20 08:00 09/29/20 07:11 09/29/20 04:49 PG Care Time/CCT Total # of Minutes Spent Total Time Spent with Patient: Total time spent is greater than 50% in coordination of care (as documented) at patient's floor/unit and/or counseling patient: Coding Level of Care Code 05273 Subseq Hosp Care Lvl 3 Diagnoses Acute respiratory failure with hypoxia J96.01 Pneumonia due to COVID-19 virus U07.1; J12.82 ILD (interstitial lung disease) J84.9 Hypertension I10 Coronary arteriosclerosis I25.10 Rheumatoid arthritis M06.9 Hyperlipemia E78.5 Esophagitis K20.90 Urinary retention R33.9 Acute tubular necrosis N17.0
--- NOTE | 2020-09-29 16:34 | XRay Report ---
XR chest 1V portable HISTORY: 80 years-old Male worsening respirtory status acute shortness of breath COMPARISON: 09/26/2020, CTA chest 09/20/2020 TECHNIQUE: Supine AP view of the chest FINDINGS: Cardiac silhouette is enlarged. Left subclavian pacer/AICD. Small left pneumothorax, pleural separati on measuring up to 1.2 cm laterally. Chronic interstitial lung disease. Perivascular congestion with progressively worsened mixed interstitial and alveolar opacities. No pneumothorax or large pleural ef fusion. Chronic fracture deformity of the proximal right humerus. IMPRESSION: 1. Small left-sided pneumothorax. 2. Chronic interstitial lung disease with superimposed diffuse bilateral pulmonary opacities suggesti ve of pulmonary edema versus infectious or inflammatory pneumonitis. ACT 112: Negative or not required by law. The above report was generated using voice recognition software. It may contain grammatical, syntax o r spelling errors. Electronically signed by: Anthony Kaufman M.D. 09/29/2020 4:33 PM
[2020-09-29] MEDS ORDERED: FUROSEMIDE 20 MG in SYRINGE 0 ML IV ONE (16:45)
[2020-09-29] MEDS ORDERED: LORazepam 0.5 MG/1 ML VIAL IV PRN (16:48)
[2020-09-29] MEDS ORDERED: MoRPHine SULFATE 2 MG/ML CARP IV PRN (16:48)
[2020-09-29] MEDS ORDERED: ONDANSETRON 4 MG OD TAB SL PRN (16:48)
[2020-09-29] MEDS ORDERED: ONDANSETRON INJ 2 MG/ML 2 ML VIAL IV PRN (16:48)
--- NOTE | 2020-09-29 19:58 | Communication Note ---
Date of Service: September 29, 2020 CXR showing worsening ARDS, now with pneumothorax. Patient continued to decline intubation. Given worsening ARDS, high FiO2 requirement prior to pneumothorax, patient wishes for non-aggressive care, ATN - I do not feel a chest tube would be of any benefit and would cause significant distress at the end of his life. Discussed this with patient, daughter Adenike and Dr Lamb and agree for comfort care approach at this time. Updated her son (Hansel) over the phone. Placed comfort care measures.
--- NOTE | 2020-09-29 20:04 | Death Summary ---
Date of Service September 29, 2020 Pronouncement Note Date and Time of Date of : 09/29/20 Time of : 19:10 PCOD Preliminary cause of : Pneumothorax Contributing Factors (1) Pneumonia due to COVID-19 virus: Summary Additional details: Hansel Resendez is an 80 year old male with rheumatoid arthritis, HTN, HLD who presented to the ER with Covid-19 pneumonia, hypoxia and shortness of breath from [facility]. His oxygen requirement significantly increased from admission and he was transferred to the intensive care unit where his oxygen levels stabilized for a few days on 90-100% high flow nasal cannula. Unfortunately he developed a pneumothorax and decision was to aim for comfort care at that time. He on September 29, 2020 at 7:10pm. Additional Data Confirmation of : no pulse, no respirations, no heart sounds and pupils fixed and dilated Family: at bedside and contacted Attending physician: Gera Fallon MD Was code activated?: No Autopsy requested?: No Coding Level of Care Code D/C DAY MANAGEMENT <30 MINS Diagnoses Pneumonia due to COVID-19 virus U07.1; J12.82
--- NOTE | 2020-10-01 07:17 | Discharge Summary ---
Date of Service September 29, 2020 Admission HPI Per Admitting Provider 80yo M w/ hx of rheumatoid arthritis, HTN, HLD who presents with Covid-19 pneumonia. The patient lives at [facility]. On Saturday (09/11), he had a fever for which he was given Tylenol. He had another fever on Saturday and was tested for Covid-19 which was positive. He unfortunately did not get his Covid vaccine because he felt he "didn't need it." At [facility], apparently, he was put on O2 and was doing ok on up to 4L. He was also started on dexamethasone, though I'm not sure what day from the records. He was sent to the ER when he had an O2 sat in the 80% range while on the 4L NC at [facility]. In the ED, he required up to 10L [place] initially, but has been weaned to 7L Oxym[place] by the time of my interview. On my interview, he actually reports feeling quite well. He notes the fevers from last week, but says he has had none since. He specifically denies any shortness of breath, cough, fevers/chills, nausea, vomiting, diarrhea, or other concerns. He feels well and asks if he can be sent home. Principal Diagnosis Pneumothorax COVID-19 pneumonia Discharge Exam Patient Discharge Data Allergies Allergy/AdvReac Type Severity Reaction Status Date / Time No Known Allergies Allergy Unverified 09/20/20 14:47 Consultations 09/20/20 13:52 ED Decision to Admit Stat 09/20/20 15:49 Consult Pulmonology Routine 09/29/20 16:33 Consult Palliative Care Routine Ordered Studies 09/20/20 13:49 CT angio chest PE protocol Stat Hospital Course (1) Pneumonia due to COVID-19 virus: Hansel Resendez is an 80 year old male with rheumatoid arthritis, HTN, HLD who presented to the ER with Covid-19 pneumonia, hypoxia and shortness of breath from [facility]. His oxygen requirement significantly increased from admission and he was transferred to the intensive care unit where his oxygen levels stabilized for a few days on 90-100% high flow nasal cannula. Unfortunately he developed a pneumothorax and decision was to aim for comfort care at that time. He on September 29, 2020 at 7:10pm. Total Time Total Time Spent Total Time Spent (In Minutes): 80 Discharge Plan Discharge Items Patient Disposition: Discharge Diagnosis: Pneumothorax COVID-19 pneumonia Addtl Attending Provider Instructions: Hansel Resendez is an 80 year old male with rheumatoid arthritis, HTN, HLD who presented to the ER with Covid-19 pneumonia, hypoxia and shortness of breath from [facility]. His oxygen requirement significantly increased from admission and he was transferred to the intensive care unit where his oxygen levels stabilized for a few days on 90-100% high flow nasal cannula. Unfortunately he developed a pneumothorax and decision was to aim for comfort care at that time. He on September 29, 2020 at 7:10pm. Coding Level of Care Code D/C DAY MANAGEMENT >30 MINS Diagnoses Pneumonia due to COVID-19 virus U07.1; J12.82
== END 2020-09-29 22:26 | disposition expired | DRG 177 ==
LOC: ED 11:58 → 2S 15:25 → SUATTDRO 15:25 → 2S 16:10 → 1E 09-21 10:24 → 2E 09-28 10:03